=== PATIENT | female | born 1950 | race Caucasian/White ===

== ENCOUNTER 2016-10-13 10:01 | Emergency (ER) | payer OTHER ==
[~2016-10-13] VITALS: Ht 152.4 cm; Wt 46.3 kg
[~2016-10-13 10:01] MED LIST: ADVAIR DISKUS 21 DSK INH; ADVAIR DISKUS1 UNIT INH; ALBUTEROL SULFAT3 M1 NEB; ALBUTEROL SULFAT3 M1 NG; AMITRIPTYLINE H10 M2 PO; BENZONATATE100 MG PO; CALCIUM 600600 M1 PO; CELEXA40 M1 PO; CINNAMON500 MG PO; CYCLOBENZAPRINE10 M1 PO; DILAUDID2 MG PO; DUONEB 3 MG/3 ML3 ML INH/SOL; DURAGESIC12 MCG/HR TOP; ELAVIL25 MG PO; FLOVENT HF0.11 MG/Ac INH; GABAPENTIN400 MG PO; LIDODERM 5% PAT1 PAT TOP; LOVAZA1 GM PO; MASON NATURAL325 MG PO; MELOXICAM15 M1 PO; MIRALAX17 GM PO; NUEDEXTA 20 MG-1 CAP PO; PEDI-DRI 20Z60 GM PO; PRAVACHOL20 M2 PO; PRAVACHOL20 MG PO; PREDNISONE10 MG PO; PRILOSEC40 MG PO; RENAL CAPS1 SGL PO; SPIRIVA 18 MCG18 MCG INH; TAMIFLU 75MG75 MG PO; TRAZODONE HCL50 M1 PO; TUDORZA PR400 MCG/Ac INH; VALIUM2 MG PO; VITAB121000 PO; VITAMIN B11000 MCG/M IM; VITAMIN D32000 I1 PO; VOLTAREN GEL1% TOP; WELLBUTRIN75 MG PO
[2016-10-13] MEDS ORDERED: NUEDEXTA 20-101 EACH PO (10:40)
[2016-10-13] MEDS ORDERED: ALENDRONATE SOD70 M2 PO (10:42)
[2016-10-13] MEDS ORDERED: DIAZEPAM2 M1 PO (10:43)
[2016-10-13] MEDS ORDERED: OMEGA-3 ACID ETH1 GM PO (10:44)
[2016-10-13] MEDS ORDERED: VENTOLIN HFA18 GM INH (10:46)
[2016-10-13] MEDS ORDERED: ADVAIR 250-501 EACH INH (10:46)
[2016-10-13] MEDS ORDERED: INCRUSE ELLI62.5 MCG INH (10:52)
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
[2016-10-13 11:24] LABS: ABSOLUTE BASOPHIL COUNT 0 /CUMM (0.0-0.2); ABSOLUTE EOSINOPHIL COUNT 0.6 /CUMM (0.0-0.7); ABSOLUTE GRANULOCYTE CT 5.9 /CUMM (1.4-6.5); ABSOLUTE LYMPH COUNT 1.8 /CUMM (1.2-3.4); ABSOLUTE MONOCYTE COUNT 0.4 /CUMM (0.10-0.60); BASOPHIL % 0.3 % (0.0-2.0); EOSINOPHIL % 6.7 % (0-5); HEMATOCRIT 34.7 % (37-47); MEAN CORPUSCULAR HGB 29.8 PG (27.0-31.0); MEAN CORPUSCULAR HGB CONC 33.2 G/DL (33.0-37.0); MEAN CORPUSCULAR VOLUME 89.9 FL (81.0-99.0); MEAN PLATELET VOLUME 6.6 FL (7.4-10.4); PLATELET COUNT 399 /CUMM (130-400); RED BLOOD CELL CT 3.86 /CUMM (4.20-5.40); WHITE BLOOD CELL COUNT 8.6 /CUMM (4.8-10.8)
--- NOTE | 2016-10-13 11:55 | RADIOLOGY REPORT ---
EXAMINATION: XR CHEST CLINICAL INFORMATION: COPD. Cough COMPARISON: CT of October 25, 2015 and portable chest of September 14, 2015 TECHNIQUE: 2 views of the chest were obtained. FINDINGS: There is a small region of parenchymal density seen about the mid peripheral right lung which may be related to pneumonitis versus developing mass. No pneumothorax or pleural effusion. Heart normal size. No evidence of pulmonary edema. Hilar contours unremarkable. IMPRESSION: Small peripheral right lung density which may be related to pneumonia or mass. Follow-up chest x-ray in 4-6 weeks following treatment is recommended to ensure resolution.
[2016-10-13] MEDS ORDERED: MOXIFLOXACIN H400 M2 PO (13:44)
[2016-10-13] MEDS ORDERED: PREDNISONE20 M1 PO (13:44)
[2016-10-13 13:54] VITALS: BP 103/61
[2016-10-13] MEDS ORDERED: BACTRIM DS TAB1 EACH PO (14:12)
== END 2016-10-13 14:34 ==
LOC: ERH 10:01
PROVIDERS: Emergency Medicine
DX: J44.1 Chronic obstructive pulmonary disease with (acute) exacerbation (principal); Z87.891 Personal history of nicotine dependence
CPT/HCPCS: 1263; 93005; 93010; 96361; 96374; J2930

== ENCOUNTER 2016-10-18 12:14 | Inpatient (IN) | payer OTHER ==
[~2016-10-18] VITALS: Ht 152.4 cm; Wt 46.3 kg
[~2016-10-18 12:14] MED LIST changes: +ADVAIR 250-501 EACH INH; +ALENDRONATE SOD70 M2 PO; +BACTRIM DS TAB1 EACH PO; +DIAZEPAM2 M1 PO; +INCRUSE ELLI62.5 MCG INH; +MOXIFLOXACIN H400 M2 PO; +NUEDEXTA 20-101 EACH PO; +OMEGA-3 ACID ETH1 GM PO; +PREDNISONE20 M1 PO; +VENTOLIN HFA18 GM INH
--- NOTE | 2016-10-18 12:16 | ED DYSPNEA/ASTHMA COMPLAINT ---
History of Present Illness General Chief Complaint: Dyspnea (COPD, CHF, Other) Stated Complaint: BIBA WITH BREATHING PROBLEM Source: patient, old records, EMS Exam Limitations: no limitations Vital Signs & Intake/Output Vital Signs & Intake/Output Vital Signs Date Time Temp Pulse Resp B/P B/P Pulse O2 O2 Flow FiO2 Mean Ox Delivery Rate 10/18 1411 97.7 87 28 128/86 94 Nasal 2.0L Cannula 10/18 1253 92 Nasal 2.0L Cannula 10/18 1223 98.2 80 32 132/83 96 Aerosol 8L Mask Allergies Coded Allergies: naproxen (Severe, THROAT CLOSES 09/14/15) ciprofloxacin (From CIPRO HC) (UNKNOWN 09/14/15) hydrocortisone (From CIPRO HC) (UNKNOWN 09/14/15) Reconcile Medications Albuterol Sulfate (Ventolin Hfa) 90 MCG HFA.AER.AD 2 PUF INH Q4-6 PRN PRN BREATHING (Reported) Albuterol Sulfate 2.5 MG/3 ML (0.083 %) VIAL.NEB 1 Vial INH/KELLY Q4P PRN SHORTNESS OF BREATH (Reported) Alendronate Sodium 70 MG TABLET 1 TAB PO QW BONES (Reported) in the morning, at least 30 minutes before the first food, beverage, or medication of the day Amitriptyline HCl 10 MG TABLET 1 TAB PO QPM MENTAL HEALTH (Reported) Bupropion HCl 75 MG TABLET 1 TAB PO BID MENTAL HEALTH (Reported) Cefuroxime Axetil (Cefuroxime) 500 MG TABLET 1 TAB PO BID ANTIBIOTIC, INFECTION (Reported) Citalopram Hydrobromide (Celexa) 40 MG TABLET 1 TAB PO DAILY MENTAL HEALTH ( Reported) Cyclobenzaprine HCl 10 MG TABLET 1 TAB PO TID PRN MUSCLE (Reported) Dextromethorphan HBr/Quinidine (Nuedexta 20-10 MG Capsule) 20 MG-10 MG CAPSULE 1 CAP PO Q12 BREATHING (Reported) Diazepam 2 MG TABLET 1 TAB PO BIDP PRN RELAX (Reported) Fluticasone/Salmeterol (Advair 250-50 Diskus) 250 MCG-50 MCG/DOSE BLST.W.DEV 1 PUF INH BID BREATHING (Reported) Gabapentin 600 MG TABLET 1 TAB PO 4 TIMES/DAY UNKNOWN (Reported) Lisinopril 10 MG TABLET 1 TAB PO DAILY HEART (Reported) Meloxicam 15 MG TABLET 1 TAB PO DAILY PAIN (Reported) [place]-3 Acid Ethyl Esters 1 GRAM CAPSULE 2 CAP PO BID SUPPLEMENT (Reported) Pravastatin Sodium (Pravachol) 20 MG TABLET 1 TAB PO QPM CHOLESTEROL ( Reported) Prednisone 10 MG TABLET 3 TAB PO DAILY STEROID (Reported) Sulfamethoxazole/Trimethoprim (Sulfamethoxazole-Tmp Ds Tablet) 800 MG-160 MG TABLET 1 TAB PO BID ANTIBIOTIC, INFECTION (Reported) Trazodone HCl 50 MG TABLET 1 TAB PO QPM SLEEP (Reported) Umeclidinium [place] (Incruse Ellipta) 62.5 MCG/ACTUATION BLST.W.DEV 1 INH INH D BREATHING (Reported) Triage Nurses Notes Reviewed? yes Onset: Gradual Duration: getting worse Timing: recent history Severity: severe Prior Episodes/Possible Cause: chronic episodes Modifying Factors: Improves With: rest. Worsens With: movement. HPI: Patient is a 66-year-old female with a past medical history of hyperlipidemia, asthma, COPD, spinal stenosis, anxiety depression vitamin D deficiency anemia and osteoarthritis who is a 40 year pack smoking history who quit approximately 3 weeks ago who was evaluated at [facility] emergency room 5 days ago for concerns of COPD exacerbation patient was sent home with steroids and Bactrim in which patient was evaluated today by primary care Dr. Barton in office obtained chest x-ray and patient presented with no improvement of persistent cough pleuritic chest pain wheezing and shortness of breath and patient was brought in by ambulance and received 125 mg of Solu-Medrol and nebulizer treatment currently receiving. Patient currently is not on home O2. Denies any chills but does have intermittent fevers. Denies any chest pain and arm pain and jaw pain leg swelling hemoptysis or palpitations Past History Travel History Traveled to [place] past 21 day No Medical History Any Pertinent Medical History? see below for history Neurological: NONE EENT: NONE Cardiovascular: hyperlipidemia Respiratory: asthma, COPD Gastrointestinal: NONE Hepatic: NONE Renal: NONE Musculoskeletal: spinal stenosis Psychiatric: anxiety, depression Endocrine: osteoporosis, vitamin D deficiency Blood Disorders: anemia Cancer(s): NONE [employer]/Reproductive: NONE History of MRSA: Yes History of VRE: No History of CDIFF: No Tetanus Vaccine: 05/14/13 Surgical History Surgical History: LAMINECTOMY Psychosocial History Who do you live with Other (see notes) Services at Home None What is your primary language Hungarian Family History Family History, If Any: MOTHER (DM). Relation not specified for: Diabetes mellitus (DM) Hx Contributory? No Review of Systems Review of Systems Constitutional: Reports: see HPI. EENTM: Reports: no symptoms. Respiratory: Reports: see HPI, cough, short of breath, wheezing. Cardiovascular: Reports: no symptoms. GI: Reports: no symptoms. Genitourinary: Reports: no symptoms. Musculoskeletal: Reports: no symptoms. Skin: Reports: no symptoms. Neurological/Psychological: Reports: no symptoms. Hematologic/Endocrine: Reports: no symptoms. Immunologic/Allergic: Reports: no symptoms. All Other Systems: Reviewed and Negative Physical Exam Physical Exam General Appearance: cachetic, PERSISTENT COUGHING Respiratory: chest non-tender, wheezing Comments: HEENT: Normal EENT exam,. Neck: Supple, no lymphadenopathy, normal range of motion without pain or tenderness Back: Nontender, no CVA tenderness. Cardiovascular: Regular rate and rhythms no murmurs rubs or gallops, normal JVP Abdomen: Soft, nontender nondistended, no appreciable organomegaly. Normal bowel sounds. No ascites Extremity: No edema, no calf tenderness to palpation, normal and equal pulses. Neuro: Alert oriented x3, motor sensory normal, Skin: No appreciable rash on exposed skin, skin is warm and dry. Psych: Mood and affect is normal, memory and judgment is normal. Core Measures ACS in differential dx? No Severe Sepsis Present: No Septic Shock Present: No Progress Differential Diagnosis: asthma, AMI, bronchitis, costochondritis, CHF, COPD, musculoskeletal pain, pericarditis, pulmonary embolism, pneumonia, pneumothorax, rib fracture, unstable angina Plan of Care: Orders Procedure Date/time Status Regular Diet 10/19 B Active Misc Message 10/18 1642 Active ED Holding Orders 10/18 1642 Active Vital Signs 10/18 1642 Active Code Status 10/18 1642 Active Admit to inpatient 10/18 1543 Active Patient Data 10/[address] CHEST WO IV CONTRAST 10/18 1533 Active EKG 10/18 1225 Active RAPID VIRAL INFLUENZA A 10/18 1223 Complete LOWER RESPIRATORY CULTURE 10/18 1223 Active TROPONIN LEVEL 10/18 1223 Complete COMPREHENSIVE METABOLIC PANEL 10/18 1223 Complete CBC WITHOUT DIFFERENTIAL 10/18 1223 Complete Laboratory Tests 10/18/16 1300: Anion Gap 14, Estimated GFR 35 L, BUN/Creatinine Ratio 25.3 H, Glucose 132 H, Calcium 10.5 H, Total Bilirubin 0.3, AST 30, ALT 37, Alkaline Phosphatase 66, Troponin I < 0.01, Total Protein 7.4, Albumin 4.5, Globulin 2.9, Albumin/ Globulin Ratio 1.6, CBC w Diff NO MAN DIFF REQ, RBC 4.16 L, MCV 89.9, MCH 29.9, RDW 15.1 H, MPV 7.4, Gran % 84.8 H, Lymphocytes % 13.7 L, Monocytes % 1.1 L, Eosinophils % 0.1, Basophils % 0.3, Absolute Granulocytes 12.2 H, Absolute Lymphocytes 2.0, Absolute Monocytes 0.2, Absolute Eosinophils 0, Absolute Basophils 0, PUBS MCHC 33.2 Microbiology 10/18 1343 NASOPHARYN: Influenza Virus A & B Rapid Smear - COMP 10/18 1223 LOWER RESP: Respiratory Culture - ORD 10/18 122 LOWER RESP: Gram Stain - ORD On initial examination patient noted to have bilateral posterior significant wheezing. Patient had just finished her on arrival nebulizer with and she was given a continuous neb Patient still coughing persistently Patient was given 2 L of nasal cannula supplementation of oxygen 10/18/2016 1:52:57 PM reevaluation the patient still coughing and still audible wheezing oxygen saturation 92% with 2 L. Patient will be admitted for concerns of COPD which she has failed outpatient treatment of by mouth steroids and antibiotics. Discussed patient with Dr. BARTON who advised patient to obtain a CT scan of chest, he advised patient to receive an IV CT scan and not an angiogram however due to patient's elevated creatinine that one was not advisable with IV contrast in which a noncontrast was performed. (JEAN CLAUDE WATSON) Diagnostic Imaging: Viewed by Me: Radiology Read. Radiology Impression: SEE COMMENTS Initial ED EK BPM NORMAL SINUS RHYTHM, LAD Prior EKG: unchanged Comments: PATIENT: LUI WILLIAM PRESENT AGE: 66 PATIENT ACCOUNT NO: [id number] : 51 LOCATION: XRY ORDERING PHYSICIAN: CHAPIS BARTON MD SERVICE DATE: 10/18/16 EXAM TYPE: RAD - XRY-CHEST XRAY, PA AND LATERAL EXAMINATION: XR CHEST CLINICAL INFORMATION: Cough. COMPARISON: 10/13/2016. TECHNIQUE: 2 views of the chest were obtained. FINDINGS: The cardiomediastinal silhouette is unremarkable. The lungs and pleural spaces appear clear without evidence of congestion, consolidation, or significant appearing effusion or atelectasis. Nodular opacity at the left lung base is consistent with a nipple shadow which is also identified on the lateral view and was not visualized on the recent chest x-ray. There is no evidence of pneumothorax or pulmonary edema. Included osseous structures appear largely unremarkable. IMPRESSION: No acute intrathoracic process. Departure Departure Disposition: STILL A PATIENT Condition: Stable Clinical Impression Primary Impression: COPD exacerbation Referrals: CHAPIS BARTON MD (PCP/Family) Departure Forms: Customer Survey General Discharge Information Admission Note Spoke With: CHAPIS BARTON MD Documentation of Exam: Documentation of any treatments & extenuating circumstances including Concerns Regarding Discharge (functional status, medication knowledge or non-compliance, living conditions, etc.) that warrant an admission rather than observation: [ Discussed patient with Dr. Barton who agrees with general medicine admission for concerns of COPD and acute kidney injury. Patient requires IV steroids IV antibiotics, pulmonary consultation, IV fluids, repeat labs. Patient has failed outpatient treatment and discharge would be medically harmful] Critical Care Note Critical Care Note Critical Care Time: non-applicable
--- NOTE | 2016-10-18 12:38 | NUR ---
PT BETHANY FROM PCP OFFICE. PT RECEIVED OP XRAY THIS AM. WAS CALLED TO PCP OFFICE TO REVEIW RESULTS. UPON ARRIVAL TO OFFICE, DECISION MADE TO SEND PT TO HOSPITAL BY AMBULANCE. PT COUGHING NEARLY CONTINUOUSLY BUT OTHERWISE IN NAD. REC'D 1 DUONEB, 1 ALBUTEROL, AND 125 SOLUMEDROL FROM EMS. 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
[2016-10-18 13:20] LABS: ABSOLUTE BASOPHIL COUNT 0 /CUMM (0.0-0.2); ABSOLUTE EOSINOPHIL COUNT 0 /CUMM (0.0-0.7); MEAN PLATELET VOLUME 7.4 FL (7.4-10.4)
[2016-10-18 13:23] LABS: ABSOLUTE GRANULOCYTE CT 12.2 /CUMM (1.4-6.5); ABSOLUTE MONOCYTE COUNT 0.2 /CUMM (0.10-0.60); BASOPHIL % 0.3 % (0.0-2.0); EOSINOPHIL % 0.1 % (0-5); HEMATOCRIT 37.4 % (37-47); MEAN CORPUSCULAR HGB 29.9 PG (27.0-31.0); MEAN CORPUSCULAR HGB CONC 33.2 G/DL (33.0-37.0); MEAN CORPUSCULAR VOLUME 89.9 FL (81.0-99.0); PLATELET COUNT 486 /CUMM (130-400); RBC DISTRIBUTION WIDTH 15.1 % (11.5-14.5); RED BLOOD CELL CT 4.16 /CUMM (4.20-5.40)
[2016-10-18 13:24] LABS: WHITE BLOOD CELL COUNT 14.4 /CUMM (4.8-10.8)
[2016-10-18 13:37] LABS: GRANULOCYTE % 84.8 % (42.2-75.2)
[2016-10-18] MEDS ORDERED: BUPROPION HCL75 M1 PO (14:42)
[2016-10-18] MEDS ORDERED: LISINOPRIL10 M1 PO (14:45)
[2016-10-18] MEDS ORDERED: PREDNISONE10 M2 PO (14:45)
[2016-10-18] MEDS ORDERED: GABAPENTIN600 M1 PO (14:46)
[2016-10-18] MEDS ORDERED: CEFUROXIME500 MG PO (14:47)
[2016-10-18] MEDS ORDERED: SULFAMETHOXAZO1 EAC1 PO (14:47)
[2016-10-18] MEDS ORDERED: ALBUTEROL2.5 MG/3 M INH/SOL (14:48)
--- NOTE | 2016-10-18 16:02 | NUR ---
HOUSE STAFF IN TO SEE PT. FAMILY AT BEDSIDE
--- NOTE | 2016-10-18 16:22 | History & Physical ---
SYDNIE LINTON 10/18/16 1622: General Information and HPI MD Statement: I have seen and personally examined LUI WILLIAM and documented this H&P. The patient is a 66 year old F who presented with a patient stated chief complaint of cough Source of Information: patient, family, old records Exam Limitations: no limitations History of Present Illness: 63-year-old woman with more than 85-[id number]-gbob history of smoking, recently quit three weeks ago, pmh of COPD (not on home O2) history MRSA pneumonia, severe cord compression s/p in 09/14/2013, psuedobulbar affect on nuedexta, osteoporosis, anxiety, fibromyalgia brought by ambulance for desaturation and 7 day duration of persistent non productive cough . She came to [place] ED on 10/13/16 for simillar complaints and was discharged from ED on Bactrim DS and prednisone. Her symptoms did not resolve and she went to see Dr. Barton on Friday as well. She was sent by ambulance from Dr. Barton's office today for persistant cough and per patient she desaturation to 89%. In the field she was given duoneb/ albuterol and 125mcg of solumedrol. CXR was also ordred for her. Endorses shortness of breath on excertion, pleuritic chest pain,chills, dizziness, abominal pain and constipation. Uses two pillows at baseline. Denies fever, sick contacts, headaches, lower extremity swelling. Of note she was recently started on lisinopril for HTN one month ago Allergies/Medications Allergies: Coded Allergies: naproxen (Severe, THROAT CLOSES 09/14/15) ciprofloxacin (From [facility]) (UNKNOWN 09/14/15) hydrocortisone (From [facility]) (UNKNOWN 09/14/15) Home Med list Albuterol Sulfate (Ventolin Hfa) 90 MCG HFA.AER.AD 2 PUF INH Q4-6 PRN PRN BREATHING (Reported) Albuterol Sulfate 2.5 MG/3 ML (0.083 %) VIAL.NEB 1 Vial INH/KELLY Q4P PRN SHORTNESS OF BREATH (Reported) Alendronate Sodium 70 MG TABLET 1 TAB PO QW BONES (Reported) in the morning, at least 30 minutes before the first food, beverage, or medication of the day Amitriptyline HCl 10 MG TABLET 1 TAB PO QPM MENTAL HEALTH (Reported) Bupropion HCl 75 MG TABLET 1 TAB PO BID MENTAL HEALTH (Reported) Cefuroxime Axetil (Cefuroxime) 500 MG TABLET 1 TAB PO BID ANTIBIOTIC, INFECTION (Reported) Citalopram Hydrobromide (Celexa) 40 MG TABLET 1 TAB PO DAILY MENTAL HEALTH ( Reported) Cyclobenzaprine HCl 10 MG TABLET 1 TAB PO TID PRN MUSCLE (Reported) Dextromethorphan HBr/Quinidine (Nuedexta 20-10 MG Capsule) 20 MG-10 MG CAPSULE 1 CAP PO Q12 BREATHING (Reported) Diazepam 2 MG TABLET 1 TAB PO BIDP PRN RELAX (Reported) Fluticasone/Salmeterol (Advair 250-50 Diskus) 250 MCG-50 MCG/DOSE BLST.W.DEV 1 PUF INH BID BREATHING (Reported) Gabapentin 600 MG TABLET 1 TAB PO 4 TIMES/DAY UNKNOWN (Reported) Lisinopril 10 MG TABLET 1 TAB PO DAILY HEART (Reported) [place]-3 Acid Ethyl Esters 1 GRAM CAPSULE 2 CAP PO BID SUPPLEMENT (Reported) Pravastatin Sodium (Pravachol) 20 MG TABLET 1 TAB PO QPM CHOLESTEROL ( Reported) Prednisone 10 MG TABLET 3 TAB PO DAILY STEROID (Reported) Sulfamethoxazole/Trimethoprim (Sulfamethoxazole-Tmp Ds Tablet) 800 MG-160 MG TABLET 1 TAB PO BID ANTIBIOTIC, INFECTION (Reported) Trazodone HCl 50 MG TABLET 1 TAB PO QPM SLEEP (Reported) Umeclidinium [place] (Incruse Ellipta) 62.5 MCG/ACTUATION BLST.W.DEV 1 INH INH D BREATHING (Reported) Compliance With Home Meds: GOOD Past History Travel History Traveled to [place] past 21 day No Medical History Neurological: NONE EENT: NONE Cardiovascular: hyperlipidemia Respiratory: asthma, COPD Gastrointestinal: NONE Hepatic: NONE Renal: NONE Musculoskeletal: spinal stenosis Psychiatric: anxiety, depression Endocrine: osteoporosis, vitamin D deficiency Blood Disorders: anemia Cancer(s): NONE 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 Relation not specified for: Diabetes mellitus (DM) FHx: lung cancer FHx: malignant neoplasm of bone Psychosocial History Who Do You Live With? self Services at Home: None Primary Language: Central [place] Smoking Status: Former Smoker ETOH Use: denies use Functional Ability ADLs Independent: dressing, eating, toileting, bathing. Ambulation: cane IADLs Independent: shopping, housework, finances, food prep, telephone, transportation , medication admin. Review of Systems Review of Systems Constitutional: Reports: chills. Denies: diaphoresis, fever, malaise, weakness, unexplained weight loss. Cardiovascular: Denies: chest pain, edema, orthopena, palpitations, peripheral edema, syncope. Respiratory: Reports: cough, short of breath. Denies: hemoptysis, orthopnea, sputum production, stridor, wheezing. GI: Reports: constipation. Denies: abdominal pain, bloating, diarrhea, distention, bowel incontinence, melena, nausea, bloody stool, changes in stool, vomiting, steatorrhea. Genitourinary: Denies: discharge, dysuria, frequency, hematuria, hesitation, nocturia, pain, urgency. Exam & Diagnostic Data Last 24 Hrs of Vital Signs/I&O Vital Signs Date Time Temp Pulse Resp B/P B/P Pulse O2 O2 Flow FiO2 Mean Ox Delivery Rate 10/18 1411 97.7 87 28 128/86 94 Nasal 2.0L Cannula 10/18 1253 92 Nasal 2.0L Cannula 10/18 1223 98.2 80 32 132/83 96 Aerosol 8L Mask Intake & Output 10/18 1600 10/18 0800 10/18 0000 Intake Total 1430 Output Total Balance 1430 Intake, IV 1250 Intake, Oral 180 Patient 102 lb Weight Weight Reported by Patient Measurement Method Physical Exam General Appearance Alert, Oriented X3, Mild Distress, cachetic Skin No Significant Lesion HEENT Atraumatic, PERRLA, EOMI, Mucous Membr. moist/pink Cardiovascular Regular Rate, Normal S1, Normal S2 Lungs b/l coarse rhonchi in all lung bases Abdomen Normal Bowel Sounds, Soft, No Tenderness Extremities No Edema Last 24 Hrs of Labs/Emre: Laboratory Tests 10/18/16 1300: Anion Gap 14, Estimated GFR 35 L, BUN/Creatinine Ratio 25.3 H, Glucose 132 H, Calcium 10.5 H, Total Bilirubin 0.3, AST 30, ALT 37, Alkaline Phosphatase 66, Troponin I < 0.01, Total Protein 7.4, Albumin 4.5, Globulin 2.9, Albumin/ Globulin Ratio 1.6, PTH Intact Pending, CBC w Diff NO MAN DIFF REQ, RBC 4.16 L, MCV 89.9, MCH 29.9, RDW 15.1 H, MPV 7.4, Gran % 84.8 H, Lymphocytes % 13.7 L, Monocytes % 1.1 L, Eosinophils % 0.1, Basophils % 0.3, Absolute Granulocytes 12.2 H, Absolute Lymphocytes 2.0, Absolute Monocytes 0.2, Absolute Eosinophils 0, Absolute Basophils 0, PUBS MCHC 33.2 Microbiology 10/18 1343 NASOPHARYN: Influenza Virus A & B Rapid Smear - COMP 10/18 1223 LOWER RESP: Respiratory Culture - ORD 10/18 122 LOWER RESP: Gram Stain - ORD Diagnostic Data EKG Results NSR, nonspecific ST wave changes in lateral leads simillar to previous EKG CXR Results SERVICE DATE: 10/18/16 FINDINGS: The cardiomediastinal silhouette is unremarkable. The lungs and pleural spaces appear clear without evidence of congestion, consolidation, or significant appearing effusion or atelectasis. Nodular opacity at the left lung base is consistent with a nipple shadow which is also identified on the lateral view and was not visualized on the recent chest x-ray. There is no evidence of pneumothorax or pulmonary edema. Included osseous structures appear largely unremarkable. IMPRESSION: No acute intrathoracic process. Other Results CT CHEST WO IV CONTRAST IMPRESSION: 1. Emphysematous changes of lung. 2. Scattered reticular nodular opacities of both lungs that are new since the CAT scan of 10/25/2015 most likely due to nonspecific infectious or inflammatory etiology. Assessment/Plan Assessment: 63-year-old woman with more than 41-qvss-hygm history of smoking recently quit three weeks ago, pmh of COPD (not on home O2) history MRSA pneumonia, severe cord compression s/p in 09/14/2013, psuedobulbar affect on nuedexta, osteoporosis, anxiety, fibromyalgia brought by ambulance for desaturation and 7 day duration of persistent non productive cough. On admission afebrile, saturating 94% of 2LNC, labs pertinent for leucocytosis of 14.4 with left shift and no bandemia. hyperkalemia (5.8), creatinine/BUN 1.5/38 (baseline 1.2). CXR shows no acute pathology, CT chest significant for emphysematous changes of lung , scattered reticular nodular opacities of both lungs that are new since the CAT scan of 10/25/2015 most likely due to nonspecific infectious or inflammatory etiology. problem list: persistent cough hyperkalemia dyspnea secoundary to COPD exacerbation EMMA osteoporosis pseudobulbar affect history of MRSA plan: will admit to general medicine floor, vitals per protocol, place isolation ATC TRC/nebs, continue supplemental oxygen, symbicort will start azithromycin, continue with IV 40mg q12 solumedrol, tesslon pearles f/up quick strep, sputum cultures Her lisinopril as well as nuedexta(5%) cough is a side effect. her pleuritic chest pain and abdominal can be attributed to her perisistent cought as well will hold lisinopril secondary to emma and possible etiology of her cough, monitor BP and will assess the need to start antihypertensive EMMA secondary to prerenal azotemia vs drug (lisinopril), will will give kayexalate and reassess potassium level (No EKG changes noted) will continue home meds of elavil, gabapentin,statin,trazadone,wellbutrin, nuedexta, regular diet dvt prophylaxis full code As Ranked By This Provider Problem List: 1. COPD exacerbation 2. Hyperkalemia 3. Cough Core Measures/Miscellaneous Acute Coronary Syndrome ACS Diagnosis: No Cerebrovascular Accident CVA/TIA Diagnosis: No Congestive Heart Failure CHF Diagnosis: No Venous Thromboembolism VTE Risk Factors: Age > 40 [facility] prophylaxis d/t: No contraindications No VTE Pharm Prophylaxis d/t: No contraindications VTE Diagnosis: No VTE Type: NONE VTE Confirmed by (Test): NONE Severe Sepsis Severe Sepsis Present: No Septic Shock Septic Shock Present: No Miscellaneous Documentation Attending Case Discussed With: CHAPIS BARTON MD Primary Care Physician: CHAPIS BARTON MD Patient sees these Specialists none Level of Patient Care: General Medicine FRANKI PAYTON 10/18/16 5055: Resident Review Statement Resident Statement: examined this patient, discussed with internet database specialist Other Findings: Patient is a 66-year-old female with past medical history significant for COPD, spinal stenosis, MRSA pneumonia, history of chronic respiratory failure, depression, anxiety, fibromyalgia, pseudo-bulbar effect, hypertension and osteopenia/osteoporosis came with chief complaint of worsening shortness of breath and persistent cough for more than a week. Patient admits that she was coughing a lot for the past week for that she was seen in emergency room on October 13 and was sent home on tapering course of prednisone and Bactrim and was instructed to follow-up with her PCP. She was seen by Dr. Barton in his office day before yesterday and chest x-ray was ordered. Her cough was persistently there without any relief and today patient was called in at Dr. Barton's office and was sent into the hospital by ambulance. On her way to the hospital she was given IV Solu-Medrol and nebulization treatment. She denied any high-grade fever, chills and admits that she was hydrating herself adequately. She denied nausea, vomiting, any urinary or bowel complaints. She has some off-and-on headaches. Admission vital signs were significant for temperature 98.2, pulse 80, respiratory rate 32, blood pressure 132/83, she was saturating 96% on 8 L of nasal cannula but later on it came down to 2 L. Initial labs were significant for WBC count 14.4, hemoglobin 12.4, hematocrit 12.4, platelet count 486, sodium 136, potassium 5.8, [place] 96, creatinine 1.5, calcium 10.5, negative troponins, Chest x-ray and chest CT were negative for any acute cardiopulmonary pathology. EKG didn't show up any acute changes Physical examination Patient is alert and oriented but in mild respiratory distress HEENT normal with atraumatic head Neck supple Chest auscultation is significant for very reduced air entry Heart normal S1, S2 with no added sounds Abdomen soft nontender without organomegaly Extremities shows no edema or cyanosis Alert and oriented with no neurological deficit Skin showed no rash Assessment and plan Patient is 66-year-old female with extensive smoking history quit 3 weeks ago with past medical history significant for COPD, MRSA pneumonia in the past, osteoporosis/osteopenia, chronic respiratory failure, hypertension, pseudo -bulbar affect, anxiety and depression and spinal stenosis status post laminectomy came with chief complaint of persistent cough and shortness of breath for more than a week most likely due to COPD axis are patient versus medication side effect. We will admit patient on general medical floor and will take care for the following problems Problem #1 persistent cough could be due to COPD exacerbation versus lisinopril side effect Problem #2 worsening shortness of breath due to underlying chronic respiratory failure and COPD exacerbation Problem #3 hyperkalemia could be due to acute kidney injury/lisinopril Problem #4 elevated creatinine most likely a EMMA due to dehydration Problem #5 history of hypertension Problem #6 spinal stenosis status post laminectomy Problem #7 history of anxiety and depression Plan 1. We'll keep patient on general medical floor and will do TRC and nebulization along with IV Solu-Medrol and a azithromycin for COPD exacerbation. Dr. Gu spa coordinator will see patient tomorrow 2. We will hydrate patient with normal saline as her emma and hypercalcemia most likely due to dehydration. We will check PTH. 3. We will send sputum for culture and sensitivity 4. We will give patient And will recheck Bep at 10 PM 5. We will hold her lisinopril and will monitor her blood pressure closely and if needed we will give her some and other class of antihypertensives 6. We will restart all other home medications. Regular diet Pharmacological DVT prophylaxis Patient is full code ANDREW TAYLOR,[facility] 10/18/16 1813: Attending MD Review Statement Attending Statement Attending MD Statement: examined this patient, discuss w/resident/PA/SANDING MACHINE OPERATOR, agreed w/resident/PA/SANDING MACHINE OPERATOR, discussed with family, reviewed EMR data (avail) Attending Assessment/Plan: Patient evaluated in my office today. She had extensive cough mostly nonproductive and was saturating 90% on room air. General Appearance: Alert, No Acute Distress Skin: Grossly normal HEENT: PEERLA Neck: Supple, No JVD Cardiovascular: Regular Rate, Normal S1, Normal S2, No Murmurs Lungs: Decreased air entry all lung george Abdomen: Soft non tender abdomen, normal bowel sounds Neurological: Normal Speech, Strength at 5/5 X4 Ext, Cranial Nerves 3-12 NL, Reflexes 2+ Extremities: No Clubbing, No Cyanosis, No Edema Vascular: Normal Pulses Assessment 66-year-old with history of COPD, MRSA pneumonia, severe cord compressions, osteoporosis, pseudobulbar affect, anxiety and fibromyalgia was initially evaluated in the ER that point x-ray was negative for pneumonia and she was discharged on Bactrim and prednisone. Since her discharge she was evaluated in my office for extensive cough and shortness of breath. She had a chest x-ray today outside the hospital that was negative. The patient was then sent to the ER for further evaluation of the CT scan. Her CAT scan suggests bibasilar nodules that are likely inflammatory in origin. She has acute kidney injury with hyperkalemia. She will be admitted for COPD exacerbation. Plan IV Solu-Medrol IV fluids Repeat kidney function in a.m. Hold lisinopril Azithromycin Induce and send sputum culture Continue other home medication DVT prophylaxis
--- NOTE | 2016-10-18 16:54 | NUR ---
PT TO AND RETURN FROM CT SCAN. DRY COUGH REMAINS. NO NEW OR WORSENING SX
--- NOTE | 2016-10-18 17:06 | CT SCAN REPORT ---
EXAMINATION: CT CHEST WITHOUT CONTRAST CLINICAL INFORMATION: Cough, shortness of breath COMPARISON: CT chest 10/25/2015. Chest x-ray 10/18/2016 TECHNIQUE: Multidetector volumetric CT imaging of the chest was done. Axial MIP volume rendering provided. Sagittal and coronal reformatted images were obtained. No oral or intravenous contrast DLP: 185.64 mGy-cm FINDINGS: LUNGS: There is emphysematous hyperinflation of lungs. There are scattered small reticular nodular opacities involving both lungs with all lobes involved. There is no focal dense consolidation. There is a linear opacity in the right upper lobe peripherally anteriorly, sagittal image 85. This is linear atelectasis versus scarring. The reticular nodular lung opacities are new since prior CT study and consistent with inflammatory/infectious etiology though are not specific. The central bronchial airways are open. No bronchiectasis or significant bronchial wall thickening. MEDIASTINUM: No mediastinal mass or bulky lymphadenopathy. There is vascular wall calcifications of aorta. PLEURA: There is no pleural effusion. No pleural mass or thickening. AXILLA: No bulky lymphadenopathy. UPPER ABDOMEN: Unremarkable. OSSEOUS STRUCTURES: Multilevel endplate degenerative spurring of the dorsal spine. IMPRESSION: 1. Emphysematous changes of lung. 2. Scattered reticular nodular opacities of both lungs that are new since the CAT scan of 10/25/2015 most likely due to nonspecific infectious or inflammatory etiology.
--- NOTE | 2016-10-18 17:56 | NUR ---
PT GOING TO ROOM 227-1.
--- NOTE | 2016-10-18 18:06 | Admission Certification ---
Admission Certification Certification Statement - As attending physician, I certify that at the time of - admission, based on clinical presentation, severity of - symptoms, need for further diagnostic testing and - therapeutic interventions, and risk of adverse outcomes - without in-hospital treatment, in my clinical assessment, - this patient requires an acute hospital stay for a minimum - of two nights or longer. I have also considered psychsocial - factors such as support system, advanced age, financial - issues, cognitive issues, and failed out-patient treatments, - past re-admission history, safety of patient, and lack of - compliance as applicable. Specific rationale supporting this admission is: copd exacerbation
--- NOTE | 2016-10-18 18:35 | NUR ---
PT GIVEN DINNER. 100% EATEN. SLIGHT SOB WHEN STANDING. NAD
--- NOTE | 2016-10-18 19:24 | NUR ---
REPORT GIVEN TO JONES ON 2NA. PT STABLE AND AWAITING TRANSPORT TO FLOOR
[2016-10-18 20:21] VITALS: BP 120/60
--- NOTE | 2016-10-18 20:48 | NUR ---
PT UP TO FLOOR AT 1945. PT A/O X3, PT ON 2L NC VSS. SOB W SPEECH. PT WITH NONPRODUCTIVE COUGH X 1 WEEK. PT C/O MILD PAIN D/T COUGHING. OOB W STEADY GAIT. HX OF FALLS D/T MISSING A STEP GOING DOWNSTAIRS.WILL MONITOR
[2016-10-18 22:38] VITALS: BP 110/62
[2016-10-19 07:15] VITALS: BP 140/72
--- NOTE | 2016-10-19 07:58 | PN- Housestaff ---
Subjective Follow-up For: persistent cough hyperkalemia dyspnea secoundary to COPD exacerbation LORI Subjective: Seen and examined patient. States that her breathing is a little better but continues to cough. She feels that this cough is a little different from the usual cough that she gets when she has her bronchitis exacerbations. Denies fevers, chills, chest pain, shortness of breath. Review of Systems Constitutional: Denies: chills, diaphoresis, fever, malaise, weakness, unexplained weight loss. Cardiovascular: Denies: chest pain, edema, orthopena, palpitations, peripheral edema, syncope. Respiratory: Reports: cough. Denies: hemoptysis, orthopnea, short of breath, sputum production, stridor, wheezing. Objective Last 24 Hrs of Vital Signs/I&O Vital Signs Date Time Temp Pulse Resp B/P B/P Pulse O2 O2 Flow FiO2 Mean Ox Delivery Rate 10/19 0918 97 Nasal 1.0L Cannula 10/19 0715 97.9 63 20 140/72 94 Nasal 2.5L Cannula 10/19 0000 Nasal 2.0L Cannula 10/18 2238 98.1 70 20 110/62 96 Nasal 2.0L Cannula 10/18 2021 97.1 67 16 120/60 95 Nasal 2.0L Cannula 10/18 2018 Nasal 2.0L Cannula 10/18 1930 98.1 70 24 124/58 96 Nasal 2.0L Cannula 10/18 1819 Nasal 2.0L Cannula 10/18 1755 98.7 72 18 133/66 95 10/18 1604 97.5 84 22 124/84 94 Nasal 2.0L Cannula 10/18 1411 97.7 87 28 128/86 94 Nasal 2.0L Cannula 10/18 1253 92 Nasal 2.0L Cannula 10/18 1223 98.2 80 32 132/83 96 Aerosol 8L Mask Intake & Output 10/19 1600 10/19 0800 10/19 0000 Intake Total 300 750 Output Total Balance 300 750 Intake, IV 250 Intake, Oral 300 500 Patient 102 lb Weight Weight Reported by Patient Measurement Method Physical Exam General Appearance: Alert, Oriented X3, Cooperative, No Acute Distress Cardiovascular: Regular Rate, Normal S1, Normal S2 Lungs: bilateral rhonchi Abdomen: Normal Bowel Sounds, Soft, No Tenderness Extremities: No Edema Current Medications: Current Medications Sig/Tigre Start time Last Medication Dose Route Stop Time Status Admin Acetaminophen 650 MG Q6P PRN 10/18 1700 AC PO Albuterol Sulfate 3 ML EVERY 4 HRS/AWAKE 10/18 2000 AC 10/19 INH 0917 Albuterol Sulfate 3 ML Q4P PRN 10/18 1745 AC INH Albuterol Sulfate 2 PUF Q4-6 PRN PRN 10/18 1745 AC INH Albuterol Sulfate 18 ML ONCE ONE 10/18 1230 DC 10/18 INH 10/18 1231 1253 Amitriptyline HCl 10 MG QPM 10/18 2200 AC 10/18 PO 2203 Azithromycin 500 MG ONCE ONE 10/18 1230 DC 10/18 Sodium Chloride 250 ML IV 10/18 1329 1300 Benzonatate 100 MG TID 10/18 1708 AC 10/19 PO 0909 Budesonide/ 2 PUF BID 10/18 2200 AC 10/19 Formoterol Fumarate INH 0908 Bupropion HCl 75 MG BID 10/18 2200 AC 10/19 PO 0910 Citalopram 40 MG DAILY 10/18 1735 AC 10/19 Hydrobromide PO 0909 Dextromethorphan/ 1 CAP Q12 10/18 2200 AC 10/19 Quinidine PO 0911 Gabapentin 600 MG Q6 10/18 1800 AC 10/19 PO 0909 Guaifenesin 0 .STK-MED ONE 10/18 1252 DC PO Guaifenesin 600 MG ONCE ONE 10/18 1230 DC 10/18 PO 10/18 1231 1302 Heparin Sodium 5,000 UNIT Q8 10/18 1645 AC 10/19 (Porcine) SC 0528 Methylprednisolone 40 MG Q8 10/18 2200 AC 10/19 IV 0528 Methylprednisolone 60 MG Q8 10/18 1706 DC IV Oxycodone/ 2 TAB Q6P PRN 10/18 1715 AC Acetaminophen PO Oxycodone/ 1 TAB Q6P PRN 10/18 1700 AC 10/19 Acetaminophen PO 0927 Pravastatin Sodium 20 MG QPM 10/18 2200 AC 10/18 PO 2203 Sodium Chloride 1,000 ML Q10H 10/18 1715 AC 10/19 IV 0641 Sodium Chloride 1,000 ML BOLUS ONE 10/18 1345 DC 10/18 IV 10/18 1444 1420 Sodium Polystyrene 60 ML ONCE ONE 10/18 1715 DC 10/18 Sulfonate PO 10/18 1716 2201 Trazodone HCl 50 MG QPM 10/18 2199 AC 10/18 PO 220 Last 24 Hrs of Lab/Emre Results Last 24 Hrs of Labs/Mics: Laboratory Tests 10/19/16 0648: Anion Gap 10, Estimated GFR 50 L, BUN/Creatinine Ratio 27.3 H, Calcium 8.5, CBC w Diff NO MAN DIFF REQ, RBC 3.46 L, MCV 89.7, MCH 30.0, RDW 14.8 H, MPV 7.6, Gran % 82.1 H, Lymphocytes % 14.8 L, Monocytes % 2.9, Eosinophils % 0, Basophils % 0.2, Absolute Granulocytes 11.0 H, Absolute Lymphocytes 2.0, Absolute Monocytes 0.4, Absolute Eosinophils 0, Absolute Basophils 0, PUBS MCHC 33.5 10/19/16 0025: Anion Gap 11, Estimated GFR 38 L, BUN/Creatinine Ratio 27.1 H 10/18/16 1740: Sodium Cancelled, Potassium Cancelled, Chloride Cancelled, Carbon Dioxide Cancelled, Anion Gap Cancelled, BUN Cancelled, Creatinine Cancelled, BUN/ Creatinine Ratio Cancelled 10/18/16 1300: Anion Gap 14, Estimated GFR 35 L, BUN/Creatinine Ratio 25.3 H, Glucose 132 H, Calcium 10.5 H, Total Bilirubin 0.3, AST 30, ALT 37, Alkaline Phosphatase 66, Troponin I < 0.01, Total Protein 7.4, Albumin 4.5, Globulin 2.9, Albumin/ Globulin Ratio 1.6, PTH Intact 52.9, CBC w Diff NO MAN DIFF REQ, RBC 4.16 L, MCV 89.9, MCH 29.9, RDW 15.1 H, MPV 7.4, Gran % 84.8 H, Lymphocytes % 13.7 L, Monocytes % 1.1 L, Eosinophils % 0.1, Basophils % 0.3, Absolute Granulocytes 12.2 H, Absolute Lymphocytes 2.0, Absolute Monocytes 0.2, Absolute Eosinophils 0, Absolute Basophils 0, PUBS MCHC 33.2 Microbiology 10/18 175 LOWER RESP: Respiratory Culture - COLB 10/18 175 LOWER RESP: Gram Stain - COLB 10/18 1343 NASOPHARYN: Influenza Virus A & B Rapid Smear - COMP 10/18 1223 LOWER RESP: Respiratory Culture - COLB 10/18 1223 LOWER RESP: Gram Stain - COLB Assessment/Plan Assessment: 63-year-old woman with more than 10-[id number]-[id number] history of smoking recently quit three weeks ago, pmh of COPD (not on home O2) history MRSA pneumonia, severe cord compression s/p in 09/14/2013, psuedobulbar affect on nuedexta, osteoporosis, anxiety, fibromyalgia brought by ambulance for desaturation and 7 day duration of persistent non productive cough. On admission afebrile, saturating 94% of 2LNC, labs pertinent for leucocytosis of 14.4 with left shift and no bandemia. hyperkalemia (5.8), creatinine/BUN 1.5/38 (baseline 1.2). CXR shows no acute pathology, CT chest significant for emphysematous changes of lung , scattered reticular nodular opacities of both lungs that are new since the CAT scan of 10/25/2015 most likely due to nonspecific infectious or inflammatory etiology. Hospital day 1 Her breathing has improved a little bit, remains afebrile, blood pressure is remaining stable WBC 13.3 today from from 14.4 yesterday Hemoglobin dropped from 12.4-10.4 along with a drop in hematocrit as well as platelets. Potassium 4.5 today, creatinine 1.1 trending down from 1.4 yesterday. Rapid influenza negative for A and B. problem list: persistent cough(COPD exacerbation versus drug-induced) Leukocytosis most likely secondary to steroids hyperkalemia-resolved dyspnea secoundary to COPD exacerbation LORI-improving osteoporosis pseudobulbar affect history of MRSA plan: Continue general medicine floor, vitals per protocol, place isolation ATC TRC/nebs, continue to taper supplemental oxygen, symbicort will start azithromycin day 2, continue with IV 40mg q12 solumedrol, sebastien berry will continue to hold lisinopril I do not think that she needs to be started on antihypertensive will continue monitor blood pressure LORI secondary to prerenal azotemia vs drug (lisinopril), improving with IV fluids will continue home meds of elavil, gabapentin,statin,trazadone,wellbutrin, nuedexta, regular diet dvt prophylaxis full code Problem List: 1. COPD exacerbation 2. Cough 3. Hyperkalemia Pain Ratin Pain Location: Not applicable Pain Goal: Pain 4 or less Pain Plan: Current regimen Tomorrow's Labs & Rationales: CBC/ BeP
[2016-10-19 08:13] LABS: ABSOLUTE BASOPHIL COUNT 0 /CUMM (0.0-0.2); ABSOLUTE EOSINOPHIL COUNT 0 /CUMM (0.0-0.7); ABSOLUTE MONOCYTE COUNT 0.4 /CUMM (0.10-0.60); BASOPHIL % 0.2 % (0.0-2.0); EOSINOPHIL % 0 % (0-5); GRANULOCYTE % 82.1 % (42.2-75.2); MEAN CORPUSCULAR HGB CONC 33.5 G/DL (33.0-37.0); MEAN CORPUSCULAR VOLUME 89.7 FL (81.0-99.0); MEAN PLATELET VOLUME 7.6 FL (7.4-10.4); PLATELET COUNT 364 /CUMM (130-400); RBC DISTRIBUTION WIDTH 14.8 % (11.5-14.5); RED BLOOD CELL CT 3.46 /CUMM (4.20-5.40); WHITE BLOOD CELL COUNT 13.3 /CUMM (4.8-10.8)
[2016-10-19 08:59] LABS: HEMATOCRIT 31.1 % (37-47)
--- NOTE | 2016-10-19 14:00 | Cons- Pulmonary ---
General Information and HPI Consulting Request Date of Consult: 10/19/16 Requested By: med team History of Present Illness: 63-year-old woman with more than [id number] history of smoking, recently quit three weeks ago, pmh of COPD (not on home O2) history MRSA pneumonia, severe cord compression s/p in 09/14/2013, psuedobulbar affect on nuedexta, osteoporosis, anxiety, fibromyalgia brought by ambulance for desaturation and 7 day duration of persistent non productive cough . She came to [facility] ED on 10/13/16 for simillar complaints and was discharged from ED on Bactrim DS and prednisone. Her symptoms did not resolve and she went to see Dr. Barton on Friday as well. She was sent by ambulance from Dr. Barton's office today for persistant cough and per patient she desaturation to 89%. In the field she was given duoneb/ albuterol and 125mcg of solumedrol. CXR was also ordred for her. Endorses shortness of breath on excertion, pleuritic chest pain,chills, dizziness, abominal pain and constipation. Uses two pillows at baseline. Denies fever, sick contacts, headaches, lower extremity swelling. Of note she was recently started on lisinopril for HTN one month ago Review of Systems Constitutional: Reports: chills. Denies: diaphoresis, fever, malaise, weakness, unexplained weight loss. Cardiovascular: Denies: chest pain, edema, orthopena, palpitations, peripheral edema, syncope. Respiratory: Reports: cough, short of breath. Denies: hemoptysis, orthopnea, sputum production, stridor, wheezing. GI: Reports: constipation. Denies: abdominal pain, bloating, diarrhea, distention, bowel incontinence, melena, nausea, bloody stool, changes in stool, vomiting, steatorrhea. Genitourinary: Denies: discharge, dysuria, frequency, hematuria, hesitation, nocturia, pain, urgency. Allergies/Medications Allergies: Coded Allergies: naproxen (Severe, THROAT CLOSES 09/14/15) ciprofloxacin (From C[facility]RO [facility]) (UNKNOWN 09/14/15) hydrocortisone (From CIPRO HC) (UNKNOWN 09/14/15) Home Med List: Albuterol Sulfate (Ventolin Hfa) 90 MCG HFA.AER.AD 2 PUF INH Q4-6 PRN PRN BREATHING (Reported) Albuterol Sulfate 2.5 MG/3 ML (0.083 %) VIAL.NEB 1 Vial INH/KELLY Q4P PRN SHORTNESS OF BREATH (Reported) Alendronate Sodium 70 MG TABLET 1 TAB PO QW BONES (Reported) in the morning, at least 30 minutes before the first food, beverage, or medication of the day Amitriptyline HCl 10 MG TABLET 1 TAB PO QPM MENTAL HEALTH (Reported) Bupropion HCl 75 MG TABLET 1 TAB PO BID MENTAL HEALTH (Reported) Cefuroxime Axetil (Cefuroxime) 500 MG TABLET 1 TAB PO BID ANTIBIOTIC, INFECTION (Reported) Citalopram Hydrobromide (Celexa) 40 MG TABLET 1 TAB PO DAILY MENTAL HEALTH ( Reported) Cyclobenzaprine HCl 10 MG TABLET 1 TAB PO TID PRN MUSCLE (Reported) Dextromethorphan HBr/Quinidine (Nuedexta 20-10 MG Capsule) 20 MG-10 MG CAPSULE 1 CAP PO Q12 BREATHING (Reported) Diazepam 2 MG TABLET 1 TAB PO BIDP PRN RELAX (Reported) Fluticasone/Salmeterol (Advair 250-50 Diskus) 250 MCG-50 MCG/DOSE BLST.W.DEV 1 PUF INH BID BREATHING (Reported) Gabapentin 600 MG TABLET 1 TAB PO 4 TIMES/DAY UNKNOWN (Reported) Lisinopril 10 MG TABLET 1 TAB PO DAILY HEART (Reported) [place]-3 Acid Ethyl Esters 1 GRAM CAPSULE 2 CAP PO BID SUPPLEMENT (Reported) Pravastatin Sodium (Pravachol) 20 MG TABLET 1 TAB PO QPM CHOLESTEROL ( Reported) Prednisone 10 MG TABLET 3 TAB PO DAILY STEROID (Reported) Sulfamethoxazole/Trimethoprim (Sulfamethoxazole-Tmp Ds Tablet) 800 MG-160 MG TABLET 1 TAB PO BID ANTIBIOTIC, INFECTION (Reported) Trazodone HCl 50 MG TABLET 1 TAB PO QPM SLEEP (Reported) Umeclidinium [place] (Incruse Ellipta) 62.5 MCG/ACTUATION BLST.W.DEV 1 INH INH D BREATHING (Reported) Review of Systems Review of Systems Constitutional: Reports: see HPI. 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 Relation not specified for: Diabetes mellitus (DM) FHx: lung cancer FHx: malignant neoplasm of bone Psychosocial History Where Do You Live? Home Who Do You Live With? self Services at Home: None Primary Language: Eritrean Smoking Status: Former Smoker ETOH Use: denies use Functional Ability ADLs Independent: dressing, eating, toileting, bathing. Ambulation: cane IADLs Independent: shopping, housework, finances, food prep, telephone, transportation , medication admin. Exam & Diagnostic Data Last 24 Hrs of Vital Signs/I&O Vital Signs Date Time Temp Pulse Resp B/P B/P Pulse O2 O2 Flow FiO2 Mean Ox Delivery Rate 10/19 0918 97 Nasal 1.0L Cannula 10/19 0715 97.9 63 20 140/72 94 Nasal 2.5L Cannula 10/19 0000 Nasal 2.0L Cannula 10/18 2238 98.1 70 20 110/62 96 Nasal 2.0L Cannula 10/18 2021 97.1 67 16 120/60 95 Nasal 2.0L Cannula 10/18 2018 Nasal 2.0L Cannula 10/18 1930 98.1 70 24 124/58 96 Nasal 2.0L Cannula 10/18 1819 Nasal 2.0L Cannula 10/18 1755 98.7 72 18 133/66 95 10/18 1604 97.5 84 22 124/84 94 Nasal 2.0L Cannula 10/18 1411 97.7 87 28 128/86 94 Nasal 2.0L Cannula Intake & Output 10/19 1600 10/19 0800 10/19 0000 Intake Total 300 750 Output Total Balance 300 750 Intake, IV 250 Intake, Oral 300 500 Patient 102 lb Weight Weight Reported by Patient Measurement Method Last 48 Hrs of Labs/Emre: Laboratory Tests 10/19/16 0648: Anion Gap 10, Estimated GFR 50 L, BUN/Creatinine Ratio 27.3 H, Calcium 8.5, CBC w Diff NO MAN DIFF REQ, RBC 3.46 L, MCV 89.7, MCH 30.0, RDW 14.8 H, MPV 7.6, Gran % 82.1 H, Lymphocytes % 14.8 L, Monocytes % 2.9, Eosinophils % 0, Basophils % 0.2, Absolute Granulocytes 11.0 H, Absolute Lymphocytes 2.0, Absolute Monocytes 0.4, Absolute Eosinophils 0, Absolute Basophils 0, PUBS MCHC 33.5 10/19/16 0025: Anion Gap 11, Estimated GFR 38 L, BUN/Creatinine Ratio 27.1 H 10/18/16 1740: Sodium Cancelled, Potassium Cancelled, Chloride Cancelled, Carbon Dioxide Cancelled, Anion Gap Cancelled, BUN Cancelled, Creatinine Cancelled, BUN/ Creatinine Ratio Cancelled 10/18/16 1300: Anion Gap 14, Estimated GFR 35 L, BUN/Creatinine Ratio 25.3 H, Glucose 132 H, Calcium 10.5 H, Total Bilirubin 0.3, AST 30, ALT 37, Alkaline Phosphatase 66, Troponin I < 0.01, Total Protein 7.4, Albumin 4.5, Globulin 2.9, Albumin/ Globulin Ratio 1.6, PTH Intact 52.9, CBC w Diff NO MAN DIFF REQ, RBC 4.16 L, MCV 89.9, MCH 29.9, RDW 15.1 H, MPV 7.4, Gran % 84.8 H, Lymphocytes % 13.7 L, Monocytes % 1.1 L, Eosinophils % 0.1, Basophils % 0.3, Absolute Granulocytes 12.2 H, Absolute Lymphocytes 2.0, Absolute Monocytes 0.2, Absolute Eosinophils 0, Absolute Basophils 0, PUBS MCHC 33.2 Microbiology 10/18 1343 NASOPHARYN: Influenza Virus A & B Rapid Smear - COMP Assessment/Plan Impression/Plan: CT chest IMPRESSION: 1. Emphysematous changes of lung. 2. Scattered reticular nodular opacities of both lungs that are new since the CAT scan of 10/25/2015 most likely due to nonspecific infectious or inflammatory etiology. Physical Exam General Appearance Alert, Oriented X3, Mild Distress, cachetic Skin No Significant Lesion HEENT Atraumatic, PERRLA, EOMI, Mucous Membr. moist/pink Cardiovascular Regular Rate, Normal S1, Normal S2 Lungs b/l coarse rhonchi in all lung bases Abdomen Normal Bowel Sounds, Soft, No Tenderness Extremities No Edema IMPRESSION This is a lady with end-stage COPD who unfortunately continues to smoke says she quit smoking with chronic pain syndrome now has SIg bronchiolitis with sig cough Previous c spine disease with rule out aspiration FIbromyalgia Chronic pain syndrome Recent aci use Sig gerd Rule out bacterial bronchiolitis REC Change to po prednisone 60 Start po azithro 500 qd CONt gabapentin and benzonatate Omeprazone po bid Keep hob up Sputum culture Nebs with albuterol Spiriva one puff daily first dose now Symbicort 160 po bid Dc iv steroids Will follow closely Consult Acknowledgment - Thank you for your consult request.
[2016-10-19 14:28] VITALS: BP 140/80
--- NOTE | 2016-10-19 17:24 | NUR ---
LATE ENTRY: PT NOTED WITH BOTHERSOME COOKING CHEF COUGH. NO MUCINEX OR ROBITUSSIN NOTED ON PT'S EMAR. PT SATS 94% ON RA NOW. NO ACUTE DISTRESS. PT TX FOR BRONCHITIS. DR. FANG CONTACTED TO SEE IF ANY MEDICATIONS CAN BE ORDERED TO ASSIST PT WITH IRRITATION D/T PERSISTENT DRY COUGH. SNO. WILL CONT TO MONITOR.
[2016-10-19 22:07] VITALS: BP 160/88
--- NOTE | 2016-10-20 05:33 | PN- Housestaff ---
Subjective Follow-up For: persistent cough hyperkalemia dyspnea secoundary to COPD exacerbation LORI Subjective: Patient seen and examined. She is seen sitting upright in her chair at bedside. She appears to be in no acute distress. She reports that her cough is persitent and causing mild chest/abdomen discomfort and is now productive of a clear mucous. She otherwise feels fine and has no new subjective complaints. Additionally she denies any headache, fever, chills, chest pain, worsening shortness of breath, nausea, vomiting, diarrhea. No overnight events reported. Review of Systems Constitutional: Reports: see HPI. Objective Last 24 Hrs of Vital Signs/I&O Vital Signs Date Time Temp Pulse Resp B/P B/P Pulse O2 O2 Flow FiO2 Mean Ox Delivery Rate 10/20 0915 92 Nasal 2.0L Cannula 10/20 0741 98.1 57 20 150/84 98 Nasal 2.0L Cannula 10/20 0000 Nasal 2.0L Cannula 10/19 2207 97.6 70 20 160/88 96 10/19 1900 95 Nasal 2.0L Cannula 10/19 1616 93 Room Air Room Air 10/19 1600 94 Room Air 10/19 1428 98.2 70 20 140/80 95 Room Air Intake & Output 10/20 1600 10/20 0800 10/20 0000 Intake Total 1080 Output Total Balance 1080 Intake, IV 600 Intake, Oral 480 Physical Exam General Appearance: Alert, Oriented X3, Cooperative, No Acute Distress Other Physical Findings: General - well developed, well nourished thing elderly woman in no acute distress HEENT- NCAT, PERRL, EOMI, anicteric sclera, nasal cannula in place CVS- S1, S2 w/o m/g/r Resp- diminished airflow bilaterally with scant bibasilar wheezing and audible productive cough, no crackles GI- Soft, nontender, nondistended, bowel sounds intact Neuro- Awake and alert, CN II - XII grossly intact Ext- normal pulses, no cyanosis/clubbing/edema Current Medications: Current Medications Sig/Tigre Start time Last Medication Dose Route Stop Time Status Admin Acetaminophen 650 MG Q6P PRN 10/18 1700 AC PO Albuterol Sulfate 3 ML EVERY 4 HRS/AWAKE 10/19 1999 AC 10/20 INH 1237 Albuterol Sulfate 3 ML Q4P PRN 10/18 1745 AC INH Albuterol Sulfate 2 PUF Q4-6 PRN PRN 10/18 1745 AC INH Amitriptyline HCl 10 MG QPM 10/18 2200 AC 10/19 PO 2156 Azithromycin 500 MG DAILY 10/20 1000 AC 10/20 PO 0927 Azithromycin 250 MG DAILY 10/19 1421 DC 10/19 PO 1559 Benzonatate 100 MG TID 10/18 1708 AC 10/20 PO 0925 Budesonide/ 2 PUF BID 10/18 2200 AC 10/20 Formoterol Fumarate INH 0927 Bupropion HCl 75 MG BID 10/18 2200 AC 10/20 PO 0925 Citalopram 40 MG DAILY 10/18 1735 AC 10/20 Hydrobromide PO 0926 Dextromethorphan/ 1 CAP Q12 10/18 2200 AC 10/20 Quinidine PO 0925 Docusate Sodium 100 MG DAILY 10/20 1150 AC PO Gabapentin 600 MG Q6 10/18 1800 AC 10/20 PO 1124 Guaifenesin/Codeine 10 ML Q6P PRN 10/20 1015 AC Phosphate PO Guaifenesin/ 10 ML Q6P PRN 10/19 1630 DC 10/20 Dextromethorphan PO 0930 Heparin Sodium 5,000 UNIT Q8 10/18 1645 AC 10/20 (Porcine) SC 0544 Magnesium Hydroxide 30 ML DAILY PRN 10/20 1200 AC PO Methylprednisolone 40 MG Q8 10/18 2200 DC 10/19 IV 1411 Omeprazole 20 MG BID 10/20 1000 AC 10/20 PO 0926 Oxycodone/ 2 TAB Q6P PRN 10/18 1715 AC 10/20 Acetaminophen PO 1024 Oxycodone/ 1 TAB Q6P PRN 10/18 1700 AC 10/19 Acetaminophen PO 1539 Patient Medication 1 UNIT ONE NR 10/20 0900 DC Teaching ED 10/20 0930 Pravastatin Sodium 20 MG QPM 10/18 2200 AC 10/19 PO 2156 Prednisone 60 MG DAILY 10/20 1000 AC 10/20 PO 0926 Tiotropium [place] 1 PUF DAILY 10/20 1000 AC 10/20 INH 0927 Trazodone HCl 50 MG QPM 10/18 2200 AC 10/19 PO 2156 Last 24 Hrs of Lab/Emre Results Last 24 Hrs of Labs/Mics: Laboratory Tests 10/20/16 0600: Anion Gap 7, Estimated GFR 56 L, BUN/Creatinine Ratio 23.0, CBC w Diff NO MAN DIFF REQ, RBC 3.90 L, MCV 91.7, MCH 29.5, RDW 15.4 H, MPV 7.5, Gran % 66.6, Lymphocytes % 28.1, Monocytes % 4.6, Eosinophils % 0.4, Basophils % 0.3, Absolute Granulocytes 10.6 H, Absolute Lymphocytes 4.5 H, Absolute Monocytes 0.7 H, Absolute Eosinophils 0.1, Absolute Basophils 0, PUBS MCHC 32.2 L Assessment/Plan Assessment: 63-year-old woman with more than [id number] history of smoking recently quit three weeks ago, pmh of COPD (not on home O2) history MRSA pneumonia, severe cord compression s/p in 09/14/2013, psuedobulbar affect on nuedexta, osteoporosis, anxiety, fibromyalgia brought by ambulance for desaturation and 7 day duration of persistent non productive cough. On admission afebrile, saturating 94% of 2LNC, labs pertinent for leucocytosis of 14.4 with left shift and no bandemia. hyperkalemia (5.8), creatinine/BUN 1.5/38 (baseline 1.2). CXR shows no acute pathology, CT chest significant for emphysematous changes of lung , scattered reticular nodular opacities of both lungs that are new since the CAT scan of 10/25/2015 most likely due to nonspecific infectious or inflammatory etiology. Hospital day 2 Patient continues to require supplemental oxygen but does not endorse any worsening shortness of breath. She states that her cough is now causing her some chest and abdominal discomfort, for which her robitussin will be changed to include Codeine. She remains afebrile with WBC elevated most likely secondary to steroids. She is to be continued on oral steroids and weaned off supplemental oxygen as tolerated. Creatinine has normalized today. Acute Hypoxic respiratory failure / COPD Exacerbation Patient with history of COPD not home home oxygen. -General Medicine -Supplemental oxygen, goal >92%, taper as tolerated -TRC with albuterol/ipratropium PRN -Azithromycin 500mg PO Daily -Prednisone 60mg PO Daily for 8 days then taper -Symbicort -Robitussin/AC 10mL PO Q6H PRN-cough -Tessalon Caps -Pulmonology consult Acute Kidney Injury - Resolved Patient creatinine as of 03/07/16 is 1.1. Creatinine initially found to be elevated to 1.2. -Avoid nephrotoxic agents such as NSAIDS -Lisinopril held -Intravenous fluids until creatinine at baseline -Daily BEP Pseudobulbar Affect -Trazodone 50mg PO QPM -Celexa 40mg PO Trey -Wellbutrin 75mg PO BID -Gabapentin 600mg PO Q6H -Amitriptyline 10mg PO QPM History of MRSA-Contact isolation Hyperlipidemia-Pravastatin 20mg PO QPM Pain Plan-Acetaminophen/Percocet Diet-Regular Diet DVT PPx-subcutaneous heparin Code Status-FULL CODE Problem List: 1. COPD (chronic obstructive pulmonary disease) Pain Ratin Pain Location: Chest/Abdomen due to coughing Pain Goal: Pain 4 or less Pain Plan: See assessment Tomorrow's Labs & Rationales: none
[2016-10-20 06:47] LABS: ABSOLUTE BASOPHIL COUNT 0 /CUMM (0.0-0.2); ABSOLUTE EOSINOPHIL COUNT 0.1 /CUMM (0.0-0.7); ABSOLUTE GRANULOCYTE CT 10.6 /CUMM (1.4-6.5); ABSOLUTE LYMPH COUNT 4.5 /CUMM (1.2-3.4); ABSOLUTE MONOCYTE COUNT 0.7 /CUMM (0.10-0.60); BASOPHIL % 0.3 % (0.0-2.0); EOSINOPHIL % 0.4 % (0-5); GRANULOCYTE % 66.6 % (42.2-75.2); HEMATOCRIT 35.8 % (37-47); MEAN CORPUSCULAR HGB 29.5 PG (27.0-31.0); MEAN CORPUSCULAR HGB CONC 32.2 G/DL (33.0-37.0); MEAN CORPUSCULAR VOLUME 91.7 FL (81.0-99.0); MEAN PLATELET VOLUME 7.5 FL (7.4-10.4); PLATELET COUNT 423 /CUMM (130-400); RBC DISTRIBUTION WIDTH 15.4 % (11.5-14.5)
[2016-10-20 07:16] LABS: WHITE BLOOD CELL COUNT 15.9 /CUMM (4.8-10.8)
[2016-10-20 07:41] VITALS: BP 150/84
--- NOTE | 2016-10-20 09:20 | PN- Pulmonary ---
Subjective HPI/Critical Care Issues: Feels a little better Cough is better Afebrile Objective Current Medications: Current Medications Sig/Tigre Start time Last Medication Dose Route Stop Time Status Admin Acetaminophen 650 MG Q6P PRN 10/18 1700 AC PO Albuterol Sulfate 3 ML EVERY 4 HRS/AWAKE 10/18 2000 AC 10/20 INH 0904 Albuterol Sulfate 3 ML Q4P PRN 10/18 1745 AC INH Albuterol Sulfate 2 PUF Q4-6 PRN PRN 10/18 1745 AC INH Amitriptyline HCl 10 MG QPM 10/18 2200 AC 10/19 PO 2156 Azithromycin 500 MG DAILY 10/20 1000 AC PO Azithromycin 250 MG DAILY 10/19 1421 DC 10/19 PO 1559 Benzonatate 100 MG TID 10/18 1708 AC 10/19 PO 2157 Budesonide/ 2 PUF BID 10/18 2200 AC 10/19 Formoterol Fumarate INH 2159 Bupropion HCl 75 MG BID 10/18 2200 AC 10/19 PO 2158 Citalopram 40 MG DAILY 10/18 1735 AC 10/19 Hydrobromide PO 0909 Dextromethorphan/ 1 CAP Q12 10/18 2200 AC 10/19 Quinidine PO 2157 Gabapentin 600 MG Q6 10/18 1800 AC 10/20 PO 0543 Guaifenesin/ 10 ML Q6P PRN 10/19 1630 AC 10/20 Dextromethorphan PO 0005 Heparin Sodium 5,000 UNIT Q8 10/18 1645 AC 10/20 (Porcine) SC 0544 Methylprednisolone 40 MG Q8 10/18 2200 DC 10/19 IV 1411 Omeprazole 20 MG BID 10/20 1000 AC PO Oxycodone/ 2 TAB Q6P PRN 10/18 1715 AC 10/20 Acetaminophen PO 0432 Oxycodone/ 1 TAB Q6P PRN 10/18 1700 AC 10/19 Acetaminophen PO 1539 Patient Medication 1 UNIT ONE NR 10/20 0900 AC Teaching ED 10/20 0930 Pravastatin Sodium 20 MG QPM 10/18 2200 AC 10/19 PO 2156 Prednisone 60 MG DAILY 10/20 1000 AC PO Tiotropium [place] 1 PUF DAILY 10/20 1000 AC INH Trazodone HCl 50 MG QPM 10/18 2200 AC 10/19 PO 2156 Vital Signs & I&O Last 24 Hrs of Vitals and I&O: Vital Signs Date Time Temp Pulse Resp B/P B/P Pulse O2 O2 Flow FiO2 Mean Ox Delivery Rate 10/20 0741 98.1 57 20 150/84 98 Nasal 2.0L Cannula 10/20 0000 Nasal 2.0L Cannula 10/19 2207 97.6 70 20 160/88 96 10/19 1900 95 Nasal 2.0L Cannula 10/19 1616 93 Room Air Room Air 10/19 1600 94 Room Air 10/19 1428 98.2 70 20 140/80 95 Room Air Intake & Output 10/20 1600 10/20 0800 10/20 0000 Intake Total 1080 Output Total Balance 1080 Intake, IV 600 Intake, Oral 480 Impression/Plan Impression/Plan Impression/Plan: CT chest IMPRESSION: 1. Emphysematous changes of lung. 2. Scattered reticular nodular opacities of both lungs that are new since the CAT scan of 10/25/2015 most likely due to nonspecific infectious or inflammatory etiology. Physical Exam General Appearance Alert, Oriented X3, Mild Distress, cachetic Skin No Significant Lesion HEENT Atraumatic, PERRLA, EOMI, Mucous Membr. moist/pink Cardiovascular Regular Rate, Normal S1, Normal S2 Lungs b/l coarse rhonchi in all lung bases Abdomen Normal Bowel Sounds, Soft, No Tenderness Extremities No Edema IMPRESSION This is a lady with end-stage COPD who unfortunately continues to smoke says she quit smoking with chronic pain syndrome now has SIg bronchiolitis with sig cough Previous c spine disease with rule out aspiration FIbromyalgia Chronic pain syndrome Recent aci use Sig gerd Rule out bacterial bronchiolitis REC po prednisone 60, taper in 8 days Continue azithromycin Sputum culture [place] 1 puff once a day CONt gabapentin and benzonatate Omeprazone po bid Keep hob up Nebs with albuterol Spiriva one puff daily first dose now Symbicort 160 po bid Change her Robitussin to Robitussin with codeine 1 teaspoon every 6 hours when necessary Will follow closely
[2016-10-20 14:40] VITALS: BP 145/82
[2016-10-20 22:34] VITALS: BP 140/80
--- NOTE | 2016-10-21 07:00 | PN- Housestaff ---
Subjective Follow-up For: persistent cough hyperkalemia dyspnea secoundary to COPD exacerbation LORI Subjective: seen and examined patient. She is still coughing however some improvement is noted. Denies fevers, chills, shortness of breath Review of Systems Constitutional: Denies: chills, diaphoresis, fever, malaise, weakness, unexplained weight loss. Cardiovascular: Denies: chest pain, edema, orthopena, palpitations, peripheral edema, syncope. Respiratory: Denies: cough, hemoptysis, orthopnea, short of breath, sputum production, stridor, wheezing. Objective Last 24 Hrs of Vital Signs/I&O Vital Signs Date Time Temp Pulse Resp B/P B/P Pulse O2 O2 Flow FiO2 Mean Ox Delivery Rate 10/21 1409 98.4 66 20 120/60 96 Room Air 10/21 1028 Nasal 2.0L Cannula 10/21 1019 Nasal 2.0L Cannula 10/21 0859 92 Nasal 2.0L Cannula 10/21 0800 93 Room Air 10/21 0734 97.8 71 20 140/80 95 Nasal 2.0L Cannula 10/21 0505 97 Nasal 2.0L Cannula 10/21 0000 Nasal 2.0L Cannula 10/20 2234 97.8 68 20 140/80 93 10/20 2001 97 Nasal 2.0L Cannula 10/20 1600 Nasal 2.0L Cannula 10/20 1440 98.0 80 20 145/82 98 Intake & Output 10/21 1600 10/21 0800 10/21 0000 Intake Total 120 500 Output Total Balance 120 500 Intake, Oral 120 500 Physical Exam General Appearance: Alert, Oriented X3, Cooperative, No Acute Distress Cardiovascular: Regular Rate, Normal S1, Normal S2 Lungs: Normal Air Movement, b/l rhonchi Abdomen: Normal Bowel Sounds, Soft, No Tenderness Extremities: No Edema Current Medications: Current Medications Sig/Tigre Start time Last Medication Dose Route Stop Time Status Admin Acetaminophen 650 MG Q6P PRN 10/18 1700 AC PO Albuterol Sulfate 3 ML EVERY 4 HRS/AWAKE 10/19 1999 AC 10/21 INH 1343 Albuterol Sulfate 3 ML Q4P PRN 10/18 1745 AC 10/20 INH 1958 Albuterol Sulfate 2 PUF Q4-6 PRN PRN 10/18 174 AC INH Amitriptyline HCl 10 MG QPM 10/18 2200 AC 10/20 PO 2026 Azithromycin 500 MG DAILY 10/20 1000 AC 10/21 PO 0931 Benzonatate 100 MG TID 10/18 1708 AC 10/21 PO 0931 Bisacodyl 5 MG DAILY 10/21 1400 AC PO Budesonide/ 2 PUF BID 10/18 2200 AC 10/21 Formoterol Fumarate INH 0936 Bupropion HCl 75 MG BID 10/18 2200 AC 10/21 PO 0931 Citalopram 40 MG DAILY 10/18 1735 AC 10/21 Hydrobromide PO 0931 Dextromethorphan/ 1 CAP Q12 10/18 2200 AC 10/21 Quinidine PO 0931 Docusate Sodium 100 MG DAILY 10/20 1150 AC 10/21 PO 0931 Gabapentin 600 MG Q6 10/18 1800 AC 10/21 PO 1139 Guaifenesin/Codeine 10 ML Q6P PRN 10/20 1015 AC 10/21 Phosphate PO 1147 Heparin Sodium 5,000 UNIT Q8 10/18 1645 AC 10/21 (Porcine) SC 0446 Lorazepam 1 MG ONCE ONE 10/21 0445 DC 10/21 IV 10/21 0446 0444 Magnesium Hydroxide 30 ML DAILY PRN 10/20 1200 AC 10/20 PO 2230 Mirtazapine 7.5 MG AT BEDTIME 10/21 220 CAN PO Omeprazole 20 MG BID 10/20 1000 AC 10/21 PO 0931 Oxycodone/ 2 TAB Q6P PRN 10/18 1715 AC 10/21 Acetaminophen PO 1147 Oxycodone/ 1 TAB Q6P PRN 10/18 1700 AC 10/19 Acetaminophen PO 1539 Patient Medication 1 ED .STK-MED ONE 10/21 1400 DC Teaching ED 10/21 1401 Pravastatin Sodium 20 MG QPM 10/18 2200 AC 10/20 PO 2025 Prednisone 60 MG DAILY 10/20 1000 AC 10/21 PO 0931 Tiotropium [place] 1 PUF DAILY 10/20 1000 AC 10/21 INH 0936 Trazodone HCl 50 MG QPM 10/18 2200 AC 10/20 PO 2024 Assessment/Plan Assessment: 63-year-old woman with more than [id number] history of smoking recently quit three weeks ago, pmh of COPD (not on home O2) history MRSA pneumonia, severe cord compression s/p in 09/14/2013, psuedobulbar affect on nuedexta, osteoporosis, anxiety, fibromyalgia brought by ambulance for desaturation and 7 day duration of persistent non productive cough. On admission afebrile, saturating 94% of 2LNC, labs pertinent for leucocytosis of 14.4 with left shift and no bandemia. hyperkalemia (5.8), creatinine/BUN 1.5/38 (baseline 1.2). CXR shows no acute pathology, CT chest significant for emphysematous changes of lung , scattered reticular nodular opacities of both lungs that are new since the CAT scan of 10/25/2015 most likely due to nonspecific infectious or inflammatory etiology. Hospital day 3 Patient continues to require supplemental oxygen . She remains afebrile with WBC elevated most likely secondary to steroids. She is to be continued on oral steroids and weaned off supplemental oxygen as tolerated. Creatinine has normalized today. Acute Hypoxic respiratory failure / COPD Exacerbation Patient with history of COPD not home home oxygen. -General Medicine -Supplemental oxygen, goal >92%, taper as tolerated -TRC with albuterol/ipratropium PRN -Azithromycin 500mg PO Daily day 3 -on PO Prednisone 8 day taper -Symbicort -Robitussin/AC 10mL PO Q6H PRN-cough -Tessalon Caps -Pulmonology on board, appreciate recomendation Hypertension will discontinue lisinopril and start norvasc 5mg Acute Kidney Injury - Resolved Patient creatinine as of 03/07/16 is 1.1. Creatinine initially found to be elevated to 1.2. -Avoid nephrotoxic agents such as NSAIDS Pseudobulbar Affect -Trazodone 50mg PO QPM -Celexa 40mg PO Trey -Wellbutrin 75mg PO BID -Gabapentin 600mg PO Q6H -Amitriptyline 10mg PO QPM History of MRSA-Contact isolation Hyperlipidemia-Pravastatin 20mg PO QPM Pain Plan-Acetaminophen/Percocet Diet-Regular Diet DVT PPx-subcutaneous heparin Code Status-FULL CODE Problem List: 1. COPD (chronic obstructive pulmonary disease) 2. Cough Pain Ratin Pain Location: na Pain Goal: Pain 4 or less Pain Plan: current regimen Tomorrow's Labs & Rationales: none required
[2016-10-21 07:34] VITALS: BP 140/80
[2016-10-21] MEDS ORDERED: AZITHROMYCIN500 M3 PO (09:12)
--- NOTE | 2016-10-21 09:26 | PN- Att Addend ---
Attending Addendum Attending Brief Note Patient reports persistent coughing and rib pain from coughing. General Appearance: Alert, No Acute Distress Skin: Grossly normal HEENT: PEERLA Neck: Supple, No JVD Cardiovascular: Regular Rate, Normal S1, Normal S2, No Murmurs Lungs: Generalized wheeze and decreased air entry Abdomen: Normal Bowel Sounds, Soft, No Tenderness Neurological: Normal Speech, Strength at 5/5 X4 Ext, Cranial Nerves 3-12 NL, Reflexes 2+ Extremities: No Clubbing, No Cyanosis, No Edema Vascular: Normal Pulses Assessment COPD exacerbation with extreme coughing fits. Unfortunately we don't have a sputum culture yet. Symptoms have somewhat improved however she has persistent coughing although lisinopril has been held. Doubt cough is related to lisinopril. We will continue prednisone and supportive care. We'll also get a PT evaluation. Plan Continue prednisone taper Continue azithromycin Induce and send sputum culture Continue inhalers PT evaluation Start Norvasc 5 mg daily Cough suppressant Current Medications Sig/Tigre Start time Last Medication Dose Route Stop Time Status Admin Acetaminophen 650 MG Q6P PRN 10/18 1700 AC PO Albuterol Sulfate 3 ML EVERY 4 HRS/AWAKE 10/18 2000 AC 10/21 INH 0858 Albuterol Sulfate 3 ML Q4P PRN 10/18 1745 AC 10/20 INH 1958 Albuterol Sulfate 2 PUF Q4-6 PRN PRN 10/18 1745 AC INH Amitriptyline HCl 10 MG QPM 10/18 2200 AC 10/20 PO 2025 Azithromycin 500 MG DAILY 10/20 1000 AC 10/20 PO 0927 Benzonatate 100 MG TID 10/18 1708 AC 10/20 PO 2024 Budesonide/ 2 PUF BID 10/18 2200 AC 10/20 Formoterol Fumarate INH 2030 Bupropion HCl 75 MG BID 10/18 2200 AC 10/20 PO 2025 Citalopram 40 MG DAILY 10/18 1735 AC 10/20 Hydrobromide PO 0926 Dextromethorphan/ 1 CAP Q12 10/18 2200 AC 10/20 Quinidine PO 2025 Docusate Sodium 100 MG DAILY 10/20 1150 AC 10/20 PO 1348 Gabapentin 600 MG Q6 10/18 1800 AC 10/21 PO 0450 Guaifenesin/Codeine 10 ML Q6P PRN 10/20 1015 AC 10/20 Phosphate PO 2228 Guaifenesin/ 10 ML Q6P PRN 10/19 1630 DC 10/20 Dextromethorphan PO 0930 Heparin Sodium 5,000 UNIT Q8 10/18 1645 AC 10/21 (Porcine) SC 0446 Lorazepam 1 MG ONCE ONE 10/21 0445 DC 10/21 IV 10/21 0446 0444 Magnesium Hydroxide 30 ML DAILY PRN 10/20 1200 AC 10/20 PO 2230 Omeprazole 20 MG BID 10/20 1000 AC 10/20 PO 202 Oxycodone/ 2 TAB Q6P PRN 10/18 1715 AC 10/21 Acetaminophen PO 0427 Oxycodone/ 1 TAB Q6P PRN 10/18 1700 AC 10/19 Acetaminophen PO 1539 Patient Medication 1 UNIT ONE NR 10/20 0900 DC Teaching ED 10/20 0930 Pravastatin Sodium 20 MG QPM 10/18 2200 AC 10/20 PO 2025 Prednisone 60 MG DAILY 10/20 1000 AC 10/20 PO 0926 Tiotropium [place] 1 PUF DAILY 10/20 1000 AC 10/20 INH 0927 Trazodone HCl 50 MG QPM 10/18 2200 AC 10/20 PO 202 Vital Signs Date Time Temp Pulse Resp B/P B/P Pulse O2 O2 Flow FiO2 Mean Ox Delivery Rate 10/21 0859 92 Nasal 2.0L Cannula 10/21 0734 97.8 71 20 140/80 95 Nasal 2.0L Cannula 10/21 0505 97 Nasal 2.0L Cannula 10/21 0000 Nasal 2.0L Cannula 10/204 97.8 68 20 140/80 93 10/20 2000 97 Nasal 2.0L Cannula 10/20 1600 Nasal 2.0L Cannula 10/20 1440 98.0 80 20 145/82 98
--- NOTE | 2016-10-21 10:41 | NUR ---
OXYGEN SATURATION 93% ON RA AT REST. AMBULATED IN [facility] WITH PHYSICAL THERAPY AND COMPLETED STAIRS. SATURATION 90% AFTER COMPLETING STAIRS. AMBULATED BACK TO ROOM, SATURATIONS RE-CHECKED, 92% AFTER FULL WALK. PT DOES C/O OF MILD SHORTNESS OF BREATH. WILL MONITOR.
--- NOTE | 2016-10-21 11:10 | PN- Pulmonary ---
Subjective HPI/Critical Care Issues: Little better afebrile cough little better Objective Current Medications: Current Medications Sig/Tigre Start time Last Medication Dose Route Stop Time Status Admin Acetaminophen 650 MG Q6P PRN 10/18 1700 AC PO Albuterol Sulfate 3 ML EVERY 4 HRS/AWAKE 10/18 2000 AC 10/21 INH 0858 Albuterol Sulfate 3 ML Q4P PRN 10/18 1745 AC 10/20 INH 1958 Albuterol Sulfate 2 PUF Q4-6 PRN PRN 10/18 1745 AC INH Amitriptyline HCl 10 MG QPM 10/18 2200 AC 10/20 PO 2026 Azithromycin 500 MG DAILY 10/20 1000 AC 10/21 PO 0931 Benzonatate 100 MG TID 10/18 1708 AC 10/21 PO 0931 Budesonide/ 2 PUF BID 10/18 2200 AC 10/21 Formoterol Fumarate INH 0936 Bupropion HCl 75 MG BID 10/18 2200 AC 10/21 PO 0931 Citalopram 40 MG DAILY 10/18 1735 AC 10/21 Hydrobromide PO 0931 Dextromethorphan/ 1 CAP Q12 10/18 2200 AC 10/21 Quinidine PO 0931 Docusate Sodium 100 MG DAILY 10/20 1150 AC 10/21 PO 0931 Gabapentin 600 MG Q6 10/18 1800 AC 10/21 PO 0450 Guaifenesin/Codeine 10 ML Q6P PRN 10/20 1015 AC 10/20 Phosphate PO 2228 Heparin Sodium 5,000 UNIT Q8 10/18 1645 AC 10/21 (Porcine) SC 0446 Lorazepam 1 MG ONCE ONE 10/21 0445 DC 10/21 IV 10/21 0446 0444 Magnesium Hydroxide 30 ML DAILY PRN 10/20 1200 AC 10/20 PO 2230 Omeprazole 20 MG BID 10/20 1000 AC 10/21 PO 0931 Oxycodone/ 2 TAB Q6P PRN 10/18 1715 AC 10/21 Acetaminophen PO 0427 Oxycodone/ 1 TAB Q6P PRN 10/18 1700 AC 10/19 Acetaminophen PO 1539 Pravastatin Sodium 20 MG QPM 10/18 2200 AC 10/20 PO 2025 Prednisone 60 MG DAILY 10/20 1000 AC 10/21 PO 0931 Tiotropium [place] 1 PUF DAILY 10/20 1000 AC 10/21 INH 0936 Trazodone HCl 50 MG QPM 10/180 AC 10/20 PO 2024 Vital Signs & I&O Last 24 Hrs of Vitals and I&O: Vital Signs Date Time Temp Pulse Resp B/P B/P Pulse O2 O2 Flow FiO2 Mean Ox Delivery Rate 10/21 1028 Nasal 2.0L Cannula 10/21 1019 Nasal 2.0L Cannula 10/21 0859 92 Nasal 2.0L Cannula 10/21 0800 93 Room Air 10/21 0734 97.8 71 20 140/80 95 Nasal 2.0L Cannula 10/21 0505 97 Nasal 2.0L Cannula 10/21 0000 Nasal 2.0L Cannula 10/20 2234 97.8 68 20 140/80 93 10/20 2000 97 Nasal 2.0L Cannula 10/20 1600 Nasal 2.0L Cannula 10/20 1440 98.0 80 20 145/82 98 Intake & Output 10/21 1600 10/21 0800 10/21 0000 Intake Total 120 500 Output Total Balance 120 500 Intake, Oral 120 500 Laboratory Tests 10/20 0600 Chemistry Sodium (137 - 145 mmol/L) 141 Potassium (3.5 - 5.1 mmol/L) 5.1 Chloride (98 - 107 mmol/L) 104 Carbon Dioxide (22 - 30 mmol/L) 30 Anion Gap (5 - 16) 7 BUN (7 - 17 mg/dL) 23 H Creatinine (0.5 - 1.0 mg/dL) 1.0 Estimated GFR (>60 ml/min) 56 L BUN/Creatinine Ratio (7 - 25 %) 23.0 Hematology CBC w Diff NO MAN DIFF REQ WBC (4.8 - 10.8 /CUMM) 15.9 H RBC (4.20 - 5.40 /CUMM) 3.90 L Hgb (12.0 - 16.0 G/DL) 11.5 L Hct (37 - 47 %) 35.8 L MCV (81.0 - 99.0 FL) 91.7 MCH (27.0 - 31.0 PG) 29.5 RDW (11.5 - 14.5 %) 15.4 H Plt Count (130 - 400 /CUMM) 423 H MPV (7.4 - 10.4 FL) 7.5 Gran % (42.2 - 75.2 %) 66.6 Lymphocytes % (20.5 - 51.1 %) 28.1 Monocytes % (1.7 - 9.3 %) 4.6 Eosinophils % (0 - 5 %) 0.4 Basophils % (0.0 - 2.0 %) 0.3 Absolute Granulocytes (1.4 - 6.5 /CUMM) 10.6 H Absolute Lymphocytes (1.2 - 3.4 /CUMM) 4.5 H Absolute Monocytes (0.10 - 0.60 /CUMM) 0.7 H Absolute Eosinophils (0.0 - 0.7 /CUMM) 0.1 Absolute Basophils (0.0 - 0.2 /CUMM) 0 PUBS MCHC (33.0 - 37.0 G/DL) 32.2 L Microbiology Date/Time Procedure - Status Source Growth 10/18 1750 Respiratory Culture - CAN LOWER RESP Cancelled: NO SPUTUM COLLECTED FOR MICRO DEPT 10/18 175 Gram Stain - CAN LOWER RESP Cancelled: NO SPUTUM COLLECTED FOR MICRO DEPT 10/18 1343 Influenza Virus A & B Rapid Smear - COMP NASOPHARYN 10/18 1223 Respiratory Culture - CAN LOWER RESP Cancelled: NO SPUTUM COLLECTED FOR MICRO DEPT 10/18 1223 Gram Stain - CAN LOWER RESP Cancelled: NO SPUTUM COLLECTED FOR MICRO DEPT Impression/Plan Impression/Plan Impression/Plan: CT chest IMPRESSION: 1. Emphysematous changes of lung. 2. Scattered reticular nodular opacities of both lungs that are new since the CAT scan of 10/25/2015 most likely due to nonspecific infectious or inflammatory etiology. Physical Exam General Appearance Alert, Oriented X3, Mild Distress, cachetic Skin No Significant Lesion HEENT Atraumatic, PERRLA, EOMI, Mucous Membr. moist/pink Cardiovascular Regular Rate, Normal S1, Normal S2 Lungs b/l coarse rhonchi in all lung bases Abdomen Normal Bowel Sounds, Soft, No Tenderness Extremities No Edema IMPRESSION This is a lady with end-stage COPD who unfortunately continues to smoke says she quit smoking with chronic pain syndrome now has SIg bronchiolitis with sig cough Previous c spine disease with rule out aspiration FIbromyalgia Chronic pain syndrome Recent aci use Sig gerd Rule out bacterial bronchiolitis REC po prednisone 50, taper in 8 days Continue azithromycin for five days Sputum culture Spiriva one puff daily CONt gabapentin and benzonatate Omeprazone po bid Keep hob up Nebs with albuterol Symbicort 160 po bid Will follow closely
[2016-10-21 14:09] VITALS: BP 120/60
[2016-10-21 22:37] VITALS: BP 150/70
[2016-10-22 06:30] VITALS: BP 142/80
--- NOTE | 2016-10-22 07:08 | Patient Discharge Instructions ---
Discharge Instructions General Discharge Information You were seen/treated for: COPD EXACERBATION COUGH Special Instructions: please follow up with your PCP within two weeks of discharge please follow up with your site supervising technical operator within two weeks of discharge Acute Coronary Syndrome Inclusion Criteria At DC or during hospital stay patient has or had the following: ACS DIAGNOSIS No Discharge Core Measures Meds if any: Prescribed or Continued at Discharge Meds if any: NOT Prescribed or Continued at Discharge Congestive Heart Failure Inclusion Criteria At DC or during hospital stay patient has or had the following: CHF DIAGNOSIS No Discharge Core Measures Meds if any: Prescribed or Continued at Discharge Meds if any: NOT Prescribed or Continued at Discharge Cerebrovascular accident Inclusion Criteria At DC or during hospital stay patient has or had the following: CVA/TIA Diagnosis No Discharge Core Measures Meds if any: Prescribed or Continued at Discharge Meds if any: NOT Prescribed or Continued at Discharge Venous thromboembolism Inclusion Criteria VTE Diagnosis No VTE Type NONE VTE Confirmed by (Test) NONE Discharge Core Measures - Per Current guidelines, there needs to be overlap - treatment for the first 5 days of Warfarin therapy. - If discharged on Warfarin prior to 5 days of - overlap therapy, the patient will need to be - assessed for post discharge needs including - *Post discharge parental anticoagulation - *Warfarin and/or parental anticoagulation education - *Follow up date to check INR post discharge At least 5 days overlap therapy as Inpatient No Meds if any: Prescribed or Continued at Discharge Note: Overlap Therapy is Warfarin and Anticoagulant Meds if any: NOT Prescribed or Continued at Discharge
[2016-10-22] MEDS ORDERED: AMLODIPINE BESYL5 M1 PO (07:09)
--- NOTE | 2016-10-22 09:20 | PN- Housestaff ---
Subjective Follow-up For: shortness of breath Subjective: Seen and examined patient, she feels anxious about going home today. Denies shortness of breath, fever, chills or abdominal pain. Her cough has improved but continues to be non productive. Review of Systems Constitutional: Denies: chills, diaphoresis, fever, malaise, weakness, unexplained weight loss. Cardiovascular: Denies: chest pain, edema, orthopena, palpitations, peripheral edema, syncope. Respiratory: Reports: cough. Denies: hemoptysis, orthopnea, short of breath, sputum production, stridor, wheezing. Objective Last 24 Hrs of Vital Signs/I&O Vital Signs Date Time Temp Pulse Resp B/P B/P Pulse O2 O2 Flow FiO2 Mean Ox Delivery Rate 10/22 0839 80 142/80 10/22 0810 92 Room Air 10/22 0800 93 Room Air 10/22 0630 98.6 80 20 142/80 91 Room Air 10/21 2237 98.5 74 20 150/70 92 Room Air 10/21 1710 88 Room Air 10/21 1409 98.4 66 20 120/60 96 Room Air Intake & Output 10/22 1600 10/22 0800 10/22 0000 Intake Total 200 Output Total Balance 200 Intake, Oral 200 Physical Exam General Appearance: Alert, Oriented X3, Cooperative, No Acute Distress Cardiovascular: Normal S1, Normal S2 Lungs: Normal Air Movement, b/l rhonchi Extremities: No Edema Current Medications: Current Medications Sig/Tigre Start time Last Medication Dose Route Stop Time Status Admin Acetaminophen 650 MG Q6P PRN 10/18 1700 AC PO Albuterol Sulfate 3 ML EVERY 4 HRS/AWAKE 10/18 2000 AC 10/22 INH 1202 Albuterol Sulfate 3 ML Q4P PRN 10/18 1745 AC 10/20 INH 1958 Albuterol Sulfate 2 PUF Q4-6 PRN PRN 10/18 1745 AC INH Amitriptyline HCl 10 MG QPM 10/18 2200 AC 10/21 PO 2219 Amlodipine Besylate 5 MG DAILY 10/21 1427 AC 10/22 PO 0839 Azithromycin 500 MG DAILY 10/20 1000 AC 10/22 PO 0839 Benzonatate 100 MG TID 10/18 1708 AC 10/22 PO 0839 Bisacodyl 5 MG DAILY 10/21 1400 AC 10/22 PO 0840 Budesonide/ 2 PUF BID 10/18 2200 AC 10/22 Formoterol Fumarate INH 0836 Bupropion HCl 75 MG BID 10/18 2200 AC 10/22 PO 0839 Citalopram 40 MG DAILY 10/18 1735 AC 10/22 Hydrobromide PO 0840 Dextromethorphan/ 1 CAP Q12 10/18 2200 AC 10/22 Quinidine PO 0839 Diazepam 2 MG BID PRN 10/21 1515 AC 10/21 PO 2354 Docusate Sodium 100 MG DAILY 10/20 1150 AC 10/22 PO 0840 Gabapentin 600 MG Q6 10/18 1800 AC 10/22 PO 0551 Guaifenesin/Codeine 10 ML Q6P PRN 10/20 1015 AC 10/22 Phosphate PO 0838 Heparin Sodium 5,000 UNIT Q8 10/18 1645 AC 10/22 (Porcine) SC 0551 Magnesium Hydroxide 30 ML DAILY PRN 10/20 1200 AC 10/20 PO 2230 Mirtazapine 7.5 MG AT BEDTIME 10/21 2200 CAN PO Omeprazole 20 MG BID 10/20 1000 AC 10/22 PO 0839 Oxycodone/ 2 TAB Q6P PRN 10/18 1715 AC 10/22 Acetaminophen PO 0837 Oxycodone/ 1 TAB Q6P PRN 10/18 1700 AC 10/19 Acetaminophen PO 1539 Patient Medication 1 ED .STK-MED ONE 10/21 1400 CA Teaching ED 10/21 1401 Pravastatin Sodium 20 MG QPM 10/18 2200 AC 10/21 PO 2220 Prednisone 50 MG DAILY 10/22 1000 AC 10/22 PO 0838 Prednisone 60 MG DAILY 10/20 1000 CA 10/21 PO 0931 Tiotropium [place] 1 PUF DAILY 10/20 1000 AC 10/22 INH 0840 Trazodone HCl 50 MG QPM 10/18 2200 AC 10/21 PO 2219 Assessment/Plan Assessment: 63-year-old woman with more than 57-[id number]-umde history of smoking recently quit three weeks ago, pmh of COPD (not on home O2) history MRSA pneumonia, severe cord compression s/p in 09/14/2013, psuedobulbar affect on nuedexta, osteoporosis, anxiety, fibromyalgia brought by ambulance for desaturation and 7 day duration of persistent non productive cough. On admission afebrile, saturating 94% of 2LNC, labs pertinent for leucocytosis of 14.4 with left shift and no bandemia. hyperkalemia (5.8), creatinine/BUN 1.5/38 (baseline 1.2). CXR shows no acute pathology, CT chest significant for emphysematous changes of lung , scattered reticular nodular opacities of both lungs that are new since the CAT scan of 10/25/2015 most likely due to nonspecific infectious or inflammatory etiology. Hospital day 4 Now saturating on RA, She remains afebrile with WBC elevated most likely secondary to steroids. She is to be continued on oral steroids. Acute Hypoxic respiratory failure / COPD Exacerbation Patient with history of COPD not home home oxygen. -General Medicine -currently on RA -TRC with albuterol/ipratropium PRN -Azithromycin 500mg PO Daily day 3 -on PO Prednisone 8 day taper -Symbicort -Robitussin/AC 10mL PO Q6H PRN-cough -Tessalon Caps -Pulmonology on board, appreciate recomendations -will benefit from Pulm rehab Hypertension continue norvasc 5mg Acute Kidney Injury - Resolved Last creatinine 1.0 -Avoid nephrotoxic agents such as NSAIDS Pseudobulbar Affect -Trazodone 50mg PO QPM -Celexa 40mg PO Trey -Wellbutrin 75mg PO BID -Gabapentin 600mg PO Q6H -Amitriptyline 10mg PO QPM History of MRSA-Contact isolation Hyperlipidemia-Pravastatin 20mg PO QPM Pain Plan-Acetaminophen/Percocet Diet-Regular Diet DVT PPx-subcutaneous heparin Code Status-FULL CODE Problem List: 1. Cough 2. COPD exacerbation Pain Ratin Pain Location: na Pain Goal: Pain 4 or less Pain Plan: current regimen Tomorrow's Labs & Rationales: none required
--- NOTE | 2016-10-22 09:35 | PN- Att Addend ---
Attending Addendum Attending Brief Note Patient reports persistent coughing and rib pain from coughing. She complains of extreme weakness and shortness of breath with exertion. General Appearance: Alert, No Acute Distress Skin: Grossly normal HEENT: PEERLA Neck: Supple, No JVD Cardiovascular: Regular Rate, Normal S1, Normal S2, No Murmurs Lungs: Generalized wheeze and decreased air entry Abdomen: Normal Bowel Sounds, Soft, No Tenderness Neurological: Normal Speech, Strength at 5/5 X4 Ext, Cranial Nerves 3-12 NL, Reflexes 2+ Extremities: No Clubbing, No Cyanosis, No Edema Vascular: Normal Pulses Assessment COPD exacerbation with extreme coughing fits and generalized deconditioning. Unfortunately we don't have a sputum culture. Symptoms have somewhat improved however she has persistent coughing although lisinopril has been held. Doubt cough is related to lisinopril. We will continue prednisone and supportive care. Patient will benefit with short term rehabilitation placement. Plan Continue prednisone taper Continue azithromycin Induce and send sputum culture Continue inhalers Cough suppressant Current Medications Sig/Tigre Start time Last Medication Dose Route Stop Time Status Admin Acetaminophen 650 MG Q6P PRN 10/18 1700 AC PO Albuterol Sulfate 3 ML EVERY 4 HRS/AWAKE 10/18 2000 AC 10/22 INH 0756 Albuterol Sulfate 3 ML Q4P PRN 10/18 1745 AC 10/20 INH 1958 Albuterol Sulfate 2 PUF Q4-6 PRN PRN 10/18 1745 AC INH Amitriptyline HCl 10 MG QPM 10/18 2200 AC 10/21 PO 2219 Amlodipine Besylate 5 MG DAILY 10/21 1427 AC 10/22 PO 0839 Azithromycin 500 MG DAILY 10/20 1000 AC 10/22 PO 0839 Benzonatate 100 MG TID 10/18 1708 AC 10/22 PO 0839 Bisacodyl 5 MG DAILY 10/21 1400 AC 10/22 PO 0840 Budesonide/ 2 PUF BID 10/18 2200 AC 10/22 Formoterol Fumarate INH 0836 Bupropion HCl 75 MG BID 10/18 2200 AC 10/22 PO 0839 Citalopram 40 MG DAILY 10/18 1735 AC 10/22 Hydrobromide PO 0840 Dextromethorphan/ 1 CAP Q12 10/18 2200 AC 10/22 Quinidine PO 0839 Diazepam 2 MG BID PRN 10/21 1515 AC 10/21 PO 2354 Docusate Sodium 100 MG DAILY 10/20 1150 AC 10/22 PO 0840 Gabapentin 600 MG Q6 10/18 1800 AC 10/22 PO 0551 Guaifenesin/Codeine 10 ML Q6P PRN 10/20 1015 AC 10/22 Phosphate PO 0838 Heparin Sodium 5,000 UNIT Q8 10/18 1645 AC 10/22 (Porcine) SC 0551 Magnesium Hydroxide 30 ML DAILY PRN 10/20 1200 AC 10/20 PO 2230 Mirtazapine 7.5 MG AT BEDTIME 10/21 2200 CAN PO Omeprazole 20 MG BID 10/20 1000 AC 10/22 PO 0839 Oxycodone/ 2 TAB Q6P PRN 10/18 1715 AC 10/22 Acetaminophen PO 0837 Oxycodone/ 1 TAB Q6P PRN 10/18 1700 AC 10/19 Acetaminophen PO 1539 Patient Medication 1 ED .STK-MED ONE 10/21 1400 DC Teaching ED 10/21 1401 Pravastatin Sodium 20 MG QPM 10/18 2200 AC 10/21 PO 2220 Prednisone 50 MG DAILY 10/22 1000 AC 10/22 PO 0838 Prednisone 60 MG DAILY 10/20 1000 DC 10/21 PO 0931 Tiotropium [place] 1 PUF DAILY 10/20 1000 AC 10/22 INH 0840 Trazodone HCl 50 MG QPM 10/18 2200 AC 10/21 PO 2219 Vital Signs Date Time Temp Pulse Resp B/P B/P Pulse O2 O2 Flow FiO2 Mean Ox Delivery Rate 10/22 0839 80 142/80 10/22 0810 92 Room Air 10/22 0630 98.6 80 20 142/80 91 Room Air 10/21 2237 98.5 74 20 150/70 92 Room Air 10/21 1710 88 Room Air 10/21 1409 98.4 66 20 120/60 96 Room Air 10/21 1028 Nasal 2.0L Cannula 10/21 1019 Nasal 2.0L Cannula
--- NOTE | 2016-10-22 09:55 | PN- Pulmonary ---
Subjective HPI/Critical Care Issues: Cough much improved afebrile stable Objective Current Medications: Current Medications Sig/Tigre Start time Last Medication Dose Route Stop Time Status Admin Acetaminophen 650 MG Q6P PRN 10/18 1700 AC PO Albuterol Sulfate 3 ML EVERY 4 HRS/AWAKE 10/18 2000 AC 10/22 INH 0756 Albuterol Sulfate 3 ML Q4P PRN 10/18 1745 AC 10/20 INH 1958 Albuterol Sulfate 2 PUF Q4-6 PRN PRN 10/18 1745 AC INH Amitriptyline HCl 10 MG QPM 10/18 2200 AC 10/21 PO 2219 Amlodipine Besylate 5 MG DAILY 10/21 1427 AC 10/22 PO 0839 Azithromycin 500 MG DAILY 10/20 1000 AC 10/22 PO 0839 Benzonatate 100 MG TID 10/18 1708 AC 10/22 PO 0839 Bisacodyl 5 MG DAILY 10/21 1400 AC 10/22 PO 0840 Budesonide/ 2 PUF BID 10/18 2200 AC 10/22 Formoterol Fumarate INH 0836 Bupropion HCl 75 MG BID 10/18 2200 AC 10/22 PO 0839 Citalopram 40 MG DAILY 10/18 1735 AC 10/22 Hydrobromide PO 0840 Dextromethorphan/ 1 CAP Q12 10/18 2200 AC 10/22 Quinidine PO 0839 Diazepam 2 MG BID PRN 10/21 1515 AC 10/21 PO 2354 Docusate Sodium 100 MG DAILY 10/20 1150 AC 10/22 PO 0840 Gabapentin 600 MG Q6 10/18 1800 AC 10/22 PO 0551 Guaifenesin/Codeine 10 ML Q6P PRN 10/20 1015 AC 10/22 Phosphate PO 0838 Heparin Sodium 5,000 UNIT Q8 10/18 1645 AC 10/22 (Porcine) SC 0551 Magnesium Hydroxide 30 ML DAILY PRN 10/20 1200 AC 10/20 PO 2230 Mirtazapine 7.5 MG AT BEDTIME 10/21 2200 CAN PO Omeprazole 20 MG BID 10/20 1000 AC 10/22 PO 0839 Oxycodone/ 2 TAB Q6P PRN 10/18 1715 AC 10/22 Acetaminophen PO 0837 Oxycodone/ 1 TAB Q6P PRN 10/18 1700 AC 10/19 Acetaminophen PO 1539 Patient Medication 1 ED .STK-MED ONE 10/21 1400 DC Teaching ED 10/21 1401 Pravastatin Sodium 20 MG QPM 10/18 2200 AC 10/21 PO 2220 Prednisone 50 MG DAILY 10/22 1000 AC 10/22 PO 0838 Prednisone 60 MG DAILY 10/20 1000 DC 10/21 PO 0931 Tiotropium [place] 1 PUF DAILY 10/20 1000 AC 10/22 INH 0840 Trazodone HCl 50 MG QPM 10/18 2200 AC 10/21 PO 2219 Vital Signs & I&O Last 24 Hrs of Vitals and I&O: Vital Signs Date Time Temp Pulse Resp B/P B/P Pulse O2 O2 Flow FiO2 Mean Ox Delivery Rate 10/22 0839 80 142/80 10/22 0810 92 Room Air 10/22 0630 98.6 80 20 142/80 91 Room Air 10/21 2237 98.5 74 20 150/70 92 Room Air 10/21 1710 88 Room Air 10/21 1409 98.4 66 20 120/60 96 Room Air 10/21 1028 Nasal 2.0L Cannula 10/21 1019 Nasal 2.0L Cannula Intake & Output 10/22 1600 10/22 0800 10/22 0000 Intake Total 200 Output Total Balance 200 Intake, Oral 200 Impression/Plan Impression/Plan Impression/Plan: CT chest IMPRESSION: 1. Emphysematous changes of lung. 2. Scattered reticular nodular opacities of both lungs that are new since the CAT scan of 10/25/2015 most likely due to nonspecific infectious or inflammatory etiology. Physical Exam General Appearance Alert, Oriented X3, Mild Distress, cachetic Skin No Significant Lesion HEENT Atraumatic, PERRLA, EOMI, Mucous Membr. moist/pink Cardiovascular Regular Rate, Normal S1, Normal S2 Lungs b/l coarse rhonchi in all lung bases Abdomen Normal Bowel Sounds, Soft, No Tenderness Extremities No Edema IMPRESSION This is a lady with end-stage COPD who unfortunately continues to smoke says she quit smoking with chronic pain syndrome now has SIg bronchiolitis with sig cough improving Previous c spine disease with rule out aspiration FIbromyalgia Chronic pain syndrome Recent aci use Sig gerd Rule out bacterial bronchiolitis REC po prednisone 50, taper in 8 days Continue azithromycin for five days, if she has any sputum can switch to doxy for seven days Sputum culture Spiriva one puff daily CONt gabapentin and benzonatate Omeprazone po bid Keep hob up Nebs with albuterol Symbicort 160 po bid Will follow closely
[2016-10-22 15:26] VITALS: BP 146/72
[2016-10-22 22:23] VITALS: BP 160/70
[2016-10-23 06:42] VITALS: BP 150/90
--- NOTE | 2016-10-23 08:33 | Discharge Summary ---
Visit Information Visit Dates Admission Date: 10/18/16 Discharge Date: 10/23/16 Hospital Course Course Attending Physician: CHAPIS MORALES MD Primary Care Physician: CHAPIS MORALES MD Hospital Course: 66-year-old female with extensive smoking history quit 3 weeks ago with past medical history significant for COPD, MRSA pneumonia in the past, osteoporosis/osteopenia, chronic respiratory failure, hypertension, pseudo- bulbar affect, anxiety and depression and spinal stenosis status post laminectomy came with chief complaint of persistent cough and shortness of breath for more than a week. Treated with IV Solu-Medrol and a azithromycin for COPD exacerbation/hypoxic respiratory failure. Evaluated by pulmonology, (Dr. Gu). She improved gradually however she is deconditioned, peer to peer was done to see if shes eligible for acute rehab/pulmonary rehab. She was not, She's discharged home. Discharged on azithromycin for a total duartion of 5 days, symbicort inhaler bid, tessalon pearls for cough, and a prednisone taper. Problem #1 COPD exacerbation Problem# 2 Hypoxic respiratory failure Problem #2 hyperkalemia Problem #3 LORI due to dehydration Allergies: Coded Allergies: naproxen (Severe, THROAT CLOSES 09/14/15) ciprofloxacin (From CIPRO ) (UNKNOWN 09/14/15) hydrocortisone (From CIPRO ) (UNKNOWN 09/14/15) Pertinent Lab Results: Vital Signs Date Time Temp Pulse Resp B/P B/P Pulse O2 O2 Flow FiO2 Mean Ox Delivery Rate 10/23 0642 97.6 68 20 150/90 95 Room Air 10/23 0558 Room Air 10/23 0000 Room Air 10/22 2223 97.6 70 20 160/70 94 05/ 1640 93 Room Air / 1526 98.6 78 20 146/72 94 / 0839 80 142/80 05/02 0810 92 Room Air 10/22 0800 93 Room Air 10/22 0630 98.6 80 20 142/80 91 Room Air 10/21 2237 98.5 74 20 150/70 92 Room Air 10/21 1710 88 Room Air 10/21 1409 98.4 66 20 120/60 96 Room Air 10/21 1028 Nasal 2.0L Cannula 10/21 1019 Nasal 2.0L Cannula 10/21 0859 92 Nasal 2.0L Cannula 10/21 0800 93 Room Air 10/21 0734 97.8 71 20 140/80 95 Nasal 2.0L Cannula 10/21 0505 97 Nasal 2.0L Cannula 10/21 0000 Nasal 2.0L Cannula 10/20 2234 97.8 68 20 140/80 93 10/20 2001 97 Nasal 2.0L Cannula 10/20 1600 Nasal 2.0L Cannula 10/20 1440 98.0 80 20 145/82 98 10/20 0915 92 Nasal 2.0L Cannula 10/20 0800 Nasal 2.0L Cannula 10/20 0741 98.1 57 20 150/84 98 Nasal 2.0L Cannula 10/20 0000 Nasal 2.0L Cannula 10/19 2207 97.6 70 20 160/88 96 10/19 1900 95 Nasal 2.0L Cannula 10/19 1616 93 Room Air Room Air 10/19 1600 94 Room Air 10/19 1428 98.2 70 20 140/80 95 Room Air 10/19 0918 97 Nasal 1.0L Cannula 10/19 0800 98 Nasal 2.0L Cannula 10/19 0715 97.9 63 20 140/72 94 Nasal 2.5L Cannula 10/19 0000 Nasal 2.0L Cannula 10/18 2238 98.1 70 20 110/62 96 Nasal 2.0L Cannula 10/18 202 97.1 67 16 120/60 95 Nasal 2.0L Cannula 10/18 2018 Nasal 2.0L Cannula 10/18 1930 98.1 70 24 124/58 96 Nasal 2.0L Cannula 10/18 1819 Nasal 2.0L Cannula 10/18 1755 98.7 72 18 133/66 95 10/18 1604 97.5 84 22 124/84 94 Nasal 2.0L Cannula 10/18 1411 97.7 87 28 128/86 94 Nasal 2.0L Cannula 10/18 1253 92 Nasal 2.0L Cannula 10/18 1223 98.2 80 32 132/83 96 Aerosol 8L Mask Last 24 Hours I&Os 10/23 1600 10/23 0800 10/23 0000 Intake Total 300 400 Output Total Balance 300 400 Intake, Oral 300 400 Microbiology Date/Time Procedure - Status Source Growth 10/18 1750 Respiratory Culture - CAN LOWER RESP Cancelled: NO SPUTUM COLLECTED FOR MICRO DEPT 04/28 1751 Gram Stain - CAN LOWER RESP Cancelled: NO SPUTUM COLLECTED FOR MICRO DEPT 10/18 1343 Influenza Virus A & B Rapid Smear - COMP NASOPHARYN Orders Procedure Date/time Status MISSING MEDICATION FORM 10/23 UNK Active RT: Reevaluation 10/21 2148 Active SPECIMEN TO BE OBTAINED 10/21 1417 Active PT Evaluate & Treat 10/21 UNK Active PT EVAL LOW COMPLEX 20 MIN 10/21 UNK Complete Gait Training 10/21 UNK Complete Anticipated Discharge 10/21 UNK Active AEROSOL CHG 10/20 UNK Complete OXYGEN 10/20 UNK Complete OXYGEN DAILY CHARGE 10/20 UNK Complete AEROSOL CHG 10/19 UNK Complete OXYGEN 10/19 UNK Complete OXYGEN DAILY CHARGE 10/19 UNK Complete OXYGEN SETUP CHG 10/18 UNK Complete AEROSOL CHG 10/18 UNK Complete OXYGEN 10/18 UNK Complete OXYGEN TRANSPORT 10/18 UNK Complete Disposition Summary Disposition Principal Diagnosis: see above Additional Diagnosis: see above Discharge Disposition: pulmonary rehab/str Discharge Instructions General Discharge Information Code Status: Full Code Patient's Diet: regular Patient's Activity: self limited Follow-Up Instructions/Appts: quinn parry Medications at Discharge Discharge Medications: Stop taking the following medications: Fluticasone/Salmeterol (Advair 250-50 Diskus) 250 MCG-50 MCG/DOSE BLST.W.DEV Inhale through mouth TWICE DAILY Lisinopril (Lisinopril) 10 MG TABLET ORAL DAILY Qty = 30 Prednisone (Prednisone) 10 MG TABLET ORAL DAILY Qty = 30 Cefuroxime Axetil (Cefuroxime) 500 MG TABLET ORAL TWICE DAILY Qty = 14 Sulfamethoxazole/Trimethoprim (Sulfamethoxazole-Tmp Ds Tablet) 800 MG-160 MG TABLET ORAL TWICE DAILY Qty = 10 Continue taking these medications: Citalopram Hydrobromide (Celexa) 40 MG TABLET 1 Tablet ORAL DAILY Comments: Last Taken: 10/23/16 Time: 10AM Trazodone HCl (Trazodone HCl) 50 MG TABLET 1 Tablet ORAL Every night Comments: Last Taken: 10/22/16 Time: 10PM Cyclobenzaprine HCl (Cyclobenzaprine HCl) 10 MG TABLET 1 Tablet ORAL THREE TIMES DAILY as needed for MUSCLE Amitriptyline HCl (Amitriptyline HCl) 10 MG TABLET 1 Tablet ORAL Every night Comments: Last Taken: 10/22/16 Time: 10PM Pravastatin Sodium (Pravachol) 20 MG TABLET 1 Tablet ORAL Every night Comments: Last Taken: 10/22/16 Time: 10PM Dextromethorphan HBr/Quinidine (Nuedexta 20-10 MG Capsule) 20 MG-10 MG CAPSULE 1 Capsule ORAL EVERY 12 HOURS Qty = 60 Comments: Last Taken: 10/23/16 Time: 10AM Alendronate Sodium (Alendronate Sodium) 70 MG TABLET 1 Tablet ORAL Once a Week Qty = 12 Instructions: in the morning, at least 30 minutes before the first food, beverage, or medication of the day Comments: NOT GIVEN WHILE IN HOSPITAL Diazepam (Diazepam) 2 MG TABLET 1 Tablet ORAL 2 x Daily as needed as needed for RELAX Qty = 60 Comments: Last Taken: 10/21/16 Time: 12AM [place]-3 Acid Ethyl Esters ([place]-3 Acid Ethyl Esters) 1 GRAM CAPSULE 2 Capsule ORAL TWICE DAILY Comments: NOT GIVEN WHILE IN HOSPITAL Albuterol Sulfate (Ventolin Hfa) 90 MCG HFA.AER.AD 2 Puff Inhale through mouth EVERY 4-6 HOURS NEEDED as needed for BREATHING Qty = 18 Comments: NOT GIVEN WHILE IN HOSPITAL Umeclidinium [place] (Incruse Ellipta) 62.5 MCG/ACTUATION BLST.W.DEV 1 Inhalation Inhale through mouth Every Day Comments: NOT GIVEN WHILE IN HOSPITAL Bupropion HCl (Bupropion HCl) 75 MG TABLET 1 Tablet ORAL TWICE DAILY Qty = 60 Comments: Last Taken: 10/23/16 Time: 10AM Gabapentin (Gabapentin) 600 MG TABLET 1 Tablet ORAL 4 TIMES A DAY Qty = 120 Comments: Last Taken: 10/23/16 Time: 12PM Albuterol Sulfate (Albuterol Sulfate) 2.5 MG/3 ML (0.083 %) VIAL.NEB 1 Vial Inhale Solution EVERY 4 HOURS NEEDED as needed for SHORTNESS OF BREATH Start taking the following new medications: Amlodipine Besylate (Amlodipine Besylate) 5 MG TABLET 5 Milligram ORAL DAILY Qty = 30 No Refills Comments: Last Taken: 10/23/16 Time: 10AM Budesonide/Formoterol Fumarate (Symbicort 160-4.5 Mcg Inhaler) 160 MCG-4.5 MCG/ ACTUATION HFA.AER.AD 2 Puff Inhale through mouth TWICE DAILY Qty = 1 No Refills Comments: Last Taken: 10/23/16 Time: 10AM Prednisone (Prednisone) 10 MG TABLET 1 Tablet ORAL DAILY Qty = 20 No Refills Instructions: TAPER BELOW: 4 TABS FOR 2 DAYS; 3 TABS FOR 2 DAYS; 2 TABS FOR 2 DAYS; 1 TAB FOR 2 DAYS; THEN STOP. Comments: Last Taken: 10/23/16 Time: 10AM Benzonatate (Tessalon [place]) 100 MG CAPSULE 1 Capsule ORAL THREE TIMES DAILY Qty = 30 No Refills Comments: Last Taken: 10/23/16 Time: 10AM Copies To: DARIANA TAYLOR,CHAPIS CALLAHAN MD Attending MD Review Statement Documenting Attending: CHAPIS MORALES MD
--- NOTE | 2016-10-23 09:34 | PN- Att Addend ---
Attending Addendum Attending Brief Note Patient reports impaired cough symptoms and she is currently off oxygen and ambulating with minimal symptoms. General Appearance: Alert, No Acute Distress Skin: Grossly normal HEENT: PEERLA Neck: Supple, No JVD Cardiovascular: Regular Rate, Normal S1, Normal S2, No Murmurs Lungs: Generalized wheeze and decreased air entry Abdomen: Normal Bowel Sounds, Soft, No Tenderness Neurological: Normal Speech, Strength at 5/5 X4 Ext, Cranial Nerves 3-12 NL, Reflexes 2+ Extremities: No Clubbing, No Cyanosis, No Edema Vascular: Normal Pulses Assessment COPD exacerbation with extreme coughing fits and generalized deconditioning. Unfortunately we don't have a sputum culture. Symptoms have somewhat improved however she has persistent coughing although lisinopril has been held. Doubt cough is related to lisinopril. We will continue prednisone and supportive care. Plan Continue prednisone taper Continue azithromycin Continue inhalers Cough suppressant Discharge home with home services Current Medications Sig/Tigre Start time Last Medication Dose Route Stop Time Status Admin Acetaminophen 650 MG Q6P PRN 10/18 1700 AC PO Albuterol Sulfate 3 ML EVERY 4 HRS/AWAKE 10/18 2000 AC 10/23 INH 0557 Albuterol Sulfate 3 ML Q4P PRN 10/18 1745 AC 10/20 INH 1958 Albuterol Sulfate 2 PUF Q4-6 PRN PRN 10/18 1745 AC INH Amitriptyline HCl 10 MG QPM 10/18 2200 AC 10/22 PO 2209 Amlodipine Besylate 5 MG DAILY 10/21 1427 AC 10/22 PO 0839 Azithromycin 500 MG DAILY 10/20 1000 AC 10/22 PO 0839 Benzonatate 100 MG TID 10/18 1708 AC 10/22 PO 2209 Bisacodyl 5 MG DAILY 10/21 1400 AC 10/22 PO 0840 Budesonide/ 2 PUF BID 10/18 2200 AC 10/22 Formoterol Fumarate INH 2210 Bupropion HCl 75 MG BID 10/18 2200 AC 10/22 PO 2211 Citalopram 40 MG DAILY 10/18 1735 AC 10/22 Hydrobromide PO 0840 Dextromethorphan/ 1 CAP Q12 10/18 2200 AC 10/22 Quinidine PO 2253 Diazepam 2 MG BID PRN 10/21 1515 AC 10/21 PO 2354 Docusate Sodium 100 MG DAILY 10/20 1150 AC 10/22 PO 0840 Gabapentin 600 MG Q6 10/18 1800 AC 10/23 PO 0523 Guaifenesin/Codeine 10 ML .STK-MED ONE 10/22 2302 DC Phosphate PO 10/22 2303 Guaifenesin/Codeine 10 ML Q6P PRN 10/20 1015 AC 10/23 Phosphate PO 0522 Heparin Sodium 5,000 UNIT Q8 10/18 1645 AC 10/23 (Porcine) SC 0523 Magnesium Hydroxide 30 ML DAILY PRN 10/20 1200 AC 10/20 PO 2230 Omeprazole 20 MG BID 10/20 1000 AC 10/22 PO 2209 Oxycodone/ 2 TAB Q6P PRN 10/18 1715 AC 10/23 Acetaminophen PO 0523 Oxycodone/ 1 TAB Q6P PRN 10/18 1700 AC 10/22 Acetaminophen PO 2254 Patient Medication 1 ED .STK-MED ONE 10/22 1418 DC Teaching ED 10/22 1419 Pravastatin Sodium 20 MG QPM 10/18 2200 AC 10/22 PO 2210 Prednisone 50 MG DAILY 10/22 1000 AC 10/22 PO 0838 Tiotropium [place] 1 PUF DAILY 10/20 1000 AC 10/22 INH 0840 Trazodone HCl 50 MG QPM 10/18 2200 AC 10/22 PO 2209 Vital Signs Date Time Temp Pulse Resp B/P B/P Pulse O2 O2 Flow FiO2 Mean Ox Delivery Rate 10/23 0642 97.6 68 20 150/90 95 Room Air 10/23 0558 Room Air 10/23 0000 Room Air 10/22 2223 97.6 70 20 160/70 94 / 1640 93 Room Air 10/22 1526 98.6 78 20 146/72 94
[2016-10-23 10:10] VITALS: BP 118/52
[2016-10-23] MEDS ORDERED: PREDNISONE10 M2 PO (10:58)
--- NOTE | 2016-10-23 11:01 | PN- Housestaff ---
Subjective Follow-up For: shortness of breath cough Subjective: Seen and examined patient, States her breathing has improved except when she has her coughing fits. Denies shortness of breath, fever, chills or abdominal pain. Review of Systems Constitutional: Denies: chills, diaphoresis, fever, malaise, weakness, unexplained weight loss. Cardiovascular: Denies: chest pain, edema, orthopena, palpitations, peripheral edema, syncope. Respiratory: Reports: cough. Denies: hemoptysis, orthopnea, short of breath, sputum production, stridor, wheezing. Objective Last 24 Hrs of Vital Signs/I&O Vital Signs Date Time Temp Pulse Resp B/P B/P Pulse O2 O2 Flow FiO2 Mean Ox Delivery Rate 10/23 1010 118/52 10/23 0800 Room Air 10/23 0642 97.6 68 20 150/90 95 Room Air 10/23 0558 Room Air 10/23 0000 Room Air 10/22 2223 97.6 70 20 160/70 94 / 1640 93 Room Air 10/22 1526 98.6 78 20 146/72 94 Intake & Output 10/23 1600 10/23 0800 10/23 0000 Intake Total 300 400 Output Total Balance 300 400 Intake, Oral 300 400 Physical Exam General Appearance: Alert, Oriented X3, Cooperative, No Acute Distress Cardiovascular: Regular Rate, Normal S1, Normal S2 Lungs: Clear to Auscultation, Normal Air Movement Extremities: No Edema Current Medications: Current Medications Sig/Tigre Start time Last Medication Dose Route Stop Time Status Admin Acetaminophen 650 MG Q6P PRN 10/18 1700 AC PO Albuterol Sulfate 3 ML EVERY 4 HRS/AWAKE 10/18 2000 AC 10/23 INH 1127 Albuterol Sulfate 3 ML Q4P PRN 10/18 1745 AC 10/20 INH 1958 Albuterol Sulfate 2 PUF Q4-6 PRN PRN 10/18 1745 AC INH Amitriptyline HCl 10 MG QPM 10/18 2200 AC 10/22 PO 2209 Amlodipine Besylate 5 MG DAILY 10/21 1427 AC 10/23 PO 1010 Azithromycin 500 MG DAILY 10/20 1000 AC 10/23 PO 1009 Benzonatate 100 MG TID 10/18 1708 AC 10/23 PO 1009 Bisacodyl 5 MG DAILY 10/21 1400 AC 10/23 PO 1010 Budesonide/ 2 PUF BID 10/18 2200 AC 10/23 Formoterol Fumarate INH 1012 Bupropion HCl 75 MG BID 10/18 2200 AC 10/23 PO 1009 Citalopram 40 MG DAILY 10/18 1735 AC 10/23 Hydrobromide PO 1010 Dextromethorphan/ 1 CAP Q12 10/18 2200 AC 10/23 Quinidine PO 1009 Diazepam 2 MG BID PRN 10/21 1515 AC 10/21 PO 2354 Docusate Sodium 100 MG DAILY 10/20 1150 AC 10/23 PO 1010 Gabapentin 600 MG Q6 10/18 1800 AC 10/23 PO 0523 Guaifenesin/Codeine 10 ML .STK-MED ONE 10/22 2302 DC Phosphate PO 10/22 2303 Guaifenesin/Codeine 10 ML Q6P PRN 10/20 1015 AC 10/23 Phosphate PO 0522 Heparin Sodium 5,000 UNIT Q8 10/18 1645 AC 10/23 (Porcine) SC 0523 Magnesium Hydroxide 30 ML DAILY PRN 10/20 1200 AC 10/20 PO 2230 Omeprazole 20 MG BID 10/20 1000 AC 10/23 PO 1009 Oxycodone/ 2 TAB Q6P PRN 10/18 1715 AC 05/03 Acetaminophen PO 0523 Oxycodone/ 1 TAB Q6P PRN 10/18 1700 AC 10/22 Acetaminophen PO 2254 Patient Medication 1 ED .STK-MED ONE 10/22 1418 DC Teaching ED 10/22 1419 Pravastatin Sodium 20 MG QPM 10/18 2200 AC 10/22 PO 2210 Prednisone 50 MG DAILY 10/22 1000 AC 10/23 PO 1009 Tiotropium [place] 1 PUF DAILY 10/20 1000 AC 10/23 INH 1012 Trazodone HCl 50 MG QPM 10/18 2200 AC 10/22 PO 2209 Assessment/Plan Assessment: 63-year-old woman with more than 97-aloh-dtfl history of smoking recently quit three weeks ago, pmh of COPD (not on home O2) history MRSA pneumonia, severe cord compression s/p in 09/14/2013, psuedobulbar affect on nuedexta, osteoporosis, anxiety, fibromyalgia brought by ambulance for desaturation and 7 day duration of persistent non productive cough. On admission afebrile, saturating 94% of 2LNC, labs pertinent for leucocytosis of 14.4 with left shift and no bandemia. hyperkalemia (5.8), creatinine/BUN 1.5/38 (baseline 1.2). CXR shows no acute pathology, CT chest significant for emphysematous changes of lung , scattered reticular nodular opacities of both lungs that are new since the CAT scan of 10/25/2015 most likely due to nonspecific infectious or inflammatory etiology. Hospital day 5 Now saturating on RA, She remains afebrile with WBC elevated most likely secondary to steroids. She is to be continued on oral steroids. Acute Hypoxic respiratory failure / COPD Exacerbation Patient with history of COPD not home home oxygen. -General Medicine -currently on RA -TRC with albuterol/ipratropium PRN -completed course of azithromycin -on PO Prednisone 8 day taper -Symbicort -Robitussin/AC 10mL PO Q6H PRN-cough -Tessalon Caps -Pulmonology on board, appreciate recomendations -medically stable for discharge with [facility] Hypertension continue norvasc 5mg Acute Kidney Injury - Resolved Last creatinine 1.0 -Avoid nephrotoxic agents such as NSAIDS Pseudobulbar Affect -Trazodone 50mg PO QPM -Celexa 40mg PO Trey -Wellbutrin 75mg PO BID -Gabapentin 600mg PO Q6H -Amitriptyline 10mg PO QPM History of MRSA-Contact isolation Hyperlipidemia-Pravastatin 20mg PO QPM Pain Plan-Acetaminophen/Percocet Diet-Regular Diet DVT PPx-subcutaneous heparin Code Status-FULL CODE Problem List: 1. Cough 2. COPD exacerbation Pain Ratin Pain Location: na Pain Goal: Pain 4 or less Pain Plan: current regimen Tomorrow's Labs & Rationales: none required
[2016-10-23] MEDS ORDERED: SYMBICORT 16010.2 GM INH (11:08)
[2016-10-23] MEDS ORDERED: TESSALON PERLE100 M1 PO (11:08)
--- NOTE | 2016-10-23 13:39 | PN- Pulmonary ---
Subjective HPI/Critical Care Issues: Doing well afebrile vss Objective Current Medications: Current Medications Sig/Tigre Start time Last Medication Dose Route Stop Time Status Admin Acetaminophen 650 MG Q6P PRN 10/18 1700 AC PO Albuterol Sulfate 3 ML EVERY 4 HRS/AWAKE 10/18 2000 AC 03 INH 1127 Albuterol Sulfate 3 ML Q4P PRN 10/18 1745 AC 10/20 INH 1958 Albuterol Sulfate 2 PUF Q4-6 PRN PRN 10/18 1745 AC INH Amitriptyline HCl 10 MG QPM 10/18 2200 AC 10/22 PO 2209 Amlodipine Besylate 5 MG DAILY 10/21 1427 AC 10/23 PO 1010 Azithromycin 500 MG DAILY 10/20 1000 AC 10/23 PO 1009 Benzonatate 100 MG TID 10/18 1708 AC 10/23 PO 1009 Bisacodyl 5 MG DAILY 10/21 1400 AC 10/23 PO 1010 Budesonide/ 2 PUF BID 10/18 2200 AC 10/23 Formoterol Fumarate INH 1012 Bupropion HCl 75 MG BID 10/18 2200 AC 10/23 PO 1009 Citalopram 40 MG DAILY 10/18 1735 AC 10/23 Hydrobromide PO 1010 Dextromethorphan/ 1 CAP Q12 10/18 2200 AC 10/23 Quinidine PO 1009 Diazepam 2 MG BID PRN 10/21 1515 AC 10/21 PO 2354 Docusate Sodium 100 MG DAILY 10/20 1150 AC 10/23 PO 1010 Gabapentin 600 MG Q6 10/18 1800 AC 10/23 PO 1223 Guaifenesin/Codeine 10 ML .STK-MED ONE 10/22 2302 DC Phosphate PO 10/22 2303 Guaifenesin/Codeine 10 ML Q6P PRN 10/20 1015 AC 03 Phosphate PO 1222 Heparin Sodium 5,000 UNIT Q8 10/18 1645 AC 10/23 (Porcine) SC 0523 Magnesium Hydroxide 30 ML DAILY PRN 10/20 1200 AC 10/20 PO 2230 Omeprazole 20 MG BID 10/20 1000 AC 10/23 PO 1009 Oxycodone/ 2 TAB Q6P PRN 10/18 1715 AC 10/23 Acetaminophen PO 1223 Oxycodone/ 1 TAB Q6P PRN 10/18 1700 AC 10/22 Acetaminophen PO 2254 Patient Medication 1 ED .STK-MED ONE 10/[address] Teaching ED 10/22 1419 Pravastatin Sodium 20 MG QPM 10/18 2200 AC 10/22 PO 2210 Prednisone 50 MG DAILY 10/22 1000 AC 10/23 PO 1009 Tiotropium [place] 1 PUF DAILY 10/20 1000 AC 10/23 INH 1012 Trazodone HCl 50 MG QPM 10/18 2200 AC 10/22 PO 2209 Vital Signs & I&O Last 24 Hrs of Vitals and I&O: Vital Signs Date Time Temp Pulse Resp B/P B/P Pulse O2 O2 Flow FiO2 Mean Ox Delivery Rate 10/23 1010 118/52 10/23 0800 Room Air 10/23 0642 97.6 68 20 150/90 95 Room Air 10/23 0558 Room Air 10/23 0000 Room Air 10/22 2223 97.6 70 20 160/70 94 / 1640 93 Room Air 10/22 1526 98.6 78 20 146/72 94 Intake & Output 10/23 1600 10/23 0800 10/23 0000 Intake Total 300 400 Output Total Balance 300 400 Intake, Oral 300 400 Impression/Plan Impression/Plan Impression/Plan: CT chest IMPRESSION: 1. Emphysematous changes of lung. 2. Scattered reticular nodular opacities of both lungs that are new since the CAT scan of 10/25/2015 most likely due to nonspecific infectious or inflammatory etiology. Physical Exam General Appearance Alert, Oriented X3, Mild Distress, cachetic Skin No Significant Lesion HEENT Atraumatic, PERRLA, EOMI, Mucous Membr. moist/pink Cardiovascular Regular Rate, Normal S1, Normal S2 Lungs b/l coarse rhonchi in all lung bases Abdomen Normal Bowel Sounds, Soft, No Tenderness Extremities No Edema IMPRESSION This is a lady with end-stage COPD who unfortunately continues to smoke says she quit smoking with chronic pain syndrome now has SIg bronchiolitis with sig cough improving Previous c spine disease with rule out aspiration FIbromyalgia Chronic pain syndrome Recent aci use Sig gerd Rule out bacterial bronchiolitis REC po prednisone 50, taper in 8 days Continue azithromycin for five days, if she has any sputum can switch to doxy for seven days Sputum culture Spiriva one puff daily CONt gabapentin and benzonatate Omeprazone po bid Keep hob up Nebs with albuterol Symbicort 160 po bid Will follow closely as out pt Pt can be dcd
== END 2016-10-23 15:51 | disposition home health service (06) | DRG 190 ==
LOC: ERH 12:14 → 2NA 15:43 → ERHI 15:43 → ENRESERV 17:53 → 2NA 19:50 → ENPENDDIS 10-23 11:16 → 2NA 10-23 15:51
PROVIDERS: Internal Medicine; Physician Assistant; ADMIT Internal Medicine
DX: J44.1 Chronic obstructive pulmonary disease with (acute) exacerbation (principal); J96.21 Acute and chronic respiratory failure with hypoxia; N17.9 Acute kidney failure, unspecified; R64 Cachexia; Z68.1 Body mass index [BMI] 19.9 or less, adult; E87.5 Hyperkalemia; M81.0 Age-related osteoporosis without current pathological fracture; F41.9 Anxiety disorder, unspecified; M79.7 Fibromyalgia; E78.5 Hyperlipidemia, unspecified; J45.909 Unspecified asthma, uncomplicated; E55.9 Vitamin D deficiency, unspecified; Z87.891 Personal history of nicotine dependence
CPT/HCPCS: 2NAP; 82436; 87070; 87804; 87804-59; 93005; 93010; 94644; 96361; 96374; 97116-GO; 97161-GP; J0456; J1644; J2060; J2920; J2930; J3490

== ENCOUNTER → 2017-12-05 | Day surgery (SDC) | payer OTHER ==
[~2017-12-05] VITALS: Ht 152.4 cm; Wt 47.6 kg
[~2017-12-05] MED LIST changes: +ALBUTEROL2.5 MG/3 M INH/SOL; +AMLODIPINE BESYL5 M1 PO; +AZITHROMYCIN500 M3 PO; +BUPROPION HCL75 M1 PO; +CALTRATE 600 +1 EACH PO; +CEFUROXIME500 MG PO; +GABAPENTIN600 M1 PO; +GINKGO BILOBA60 M1 PO; +LISINOPRIL10 M1 PO; +LYRICA75 M1 PO; +PREDNISONE10 M2 PO; +SPIRIVA RESPIMAT4 GM INH; +SULFAMETHOXAZO1 EAC1 PO; +SUPER B COMPLE1 EACH PO; +SYMBICORT 16010.2 GM INH; +TESSALON PERLE100 M1 PO
--- NOTE | 2017-12-05 15:22 | Operative Report ---
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 She was then placed in dorsal lithotomy position. A speculum was placed in the patient's vagina. Lugol's solution was then applied to the cervix. No lesions were visualized. 10 mL of 1% lidocaine were injected into the cervix circumferentially. The electrocautery loop was then used to excise first the anterior portion of the cervix followed by the posterior portion of the cervix in the same fashion. The narrow electrocautery loop was then used to excise a portion of the endocervical canal. The rollerball was then applied to the remainder of the cervix to desiccate the exposed tissue. Excellent hemostasis was noted. A small amount of Monsel solution was then applied to the cervix. Portions of the cervix and endocervical canal were then sent to pathology. All instruments were then removed from the patient's vagina. All counts were reported to be correct 2. The patient was then taken to the recovery room in stable condition. Discharge Disposition: Same Day Admissions
== END ==
LOC: STS 03:03
DX: D06.9 Carcinoma in situ of cervix, unspecified (principal); I10 Essential (primary) hypertension; J44.9 Chronic obstructive pulmonary disease, unspecified; F17.200 Nicotine dependence, unspecified, uncomplicated; M79.7 Fibromyalgia
CPT/HCPCS: J0131; J2250

== ENCOUNTER 2017-12-18 17:20 | Emergency (ER) | payer OTHER ==
[~2017-12-18] VITALS: Ht 152.4 cm; Wt 46.7 kg
--- NOTE | 2017-12-18 17:43 | ED GI/GU/ABDOMINAL COMPLAINT ---
History of Present Illness General Chief Complaint: Female Urogenital Problems Stated Complaint: SENT BY DR FOR HEAVY VAGINAL BLEEDING Source: patient Exam Limitations: no limitations Vital Signs & Intake/Output Vital Signs & Intake/Output Vital Signs Date Time Temp Pulse Resp B/P B/P Pulse O2 O2 Flow FiO2 Mean Ox Delivery Rate 12/18 2133 98.0 63 20 118/54 93 Room Air Room Air 12/18 1942 63 18 102/70 92 Room Air 12/18 1830 70 18 110/68 93 Room Air 12/18 1812 Room Air 12/18 1724 97.6 77 20 106/58 96 Room Air Allergies Coded Allergies: naproxen (Severe, THROAT CLOSES 09/14/15) ciprofloxacin (From [facility]RO [facility]) (AFFECTED ACHILLES TENDON 12/04/17) hydrocortisone (From C[facility]RO HC) (AFFECTED ACHILLES TENDON 12/04/17) lisinopril (COUGHING 12/03/17) Triage Note: PT SENT TO ED BY [facility] FOR VAGINAL BLEEDING AND WBC OF 19. PT IS S/P LEEP PROCEDURE BY DR MCCARTHY ON 12/05 HERE. PT C/O PELVIC PAIN. PT WENT FOR F/U AT [facility] TODAY, BLOODWORK WAS DRAWN AND SHOWED WBC OF 19,000. OFFICE WOULD LIKE EVAL FOR ? PID, IV ABX. GERARD CANALES FROM [facility] CAN BE REACHED AT [phone]. Triage Nurses Notes Reviewed? yes ? N Is pt currently ? No Duration: better Timing: recent history Severity Numbers: 8 Location: suprapubic Radiation: no radiation HPI: PT SENT TO ED BY [facility] FOR VAGINAL BLEEDING AND WBC OF 19. PT IS S/P LEEP PROCEDURE BY DR MCCARTHY ON 12/05 HERE. PT C/O PELVIC PAIN. PT WENT FOR F/U AT [facility] TODAY, BLOODWORK WAS DRAWN AND SHOWED WBC OF 19,000. OFFICE WOULD LIKE EVAL FOR ? PID, IV ABX. GERARD CANALES FROM [facility] CAN BE REACHED AT [phone]. Patient is a 67-year-old female with a past medical history of hypertension hyperlipidemia COPD who currently smokes anxiety and HPV were patient had a scheduled LEEP procedure performed by FLIGHT FOLLOWER Dr. Mccarthy on December 05 patient states that the following week she had expected mild vaginal spotting however last evening patient had significant vaginal clot bleeding and passage they continued today this morning however she has been complaining of severe suprapubic abdominal cramping pain patient took Tylenol with no relief of symptoms states that the bleeding has stopped prior to arrival Patient denies any fever chills chest pain back pain Patient can tolerate by mouth prior to arrival (Jag Bernard) Reconcile Medications Albuterol Sulfate (Ventolin Hfa) 90 MCG HFA.AER.AD 2 PUF INH Q4-6 PRN PRN BREATHING (Reported) Albuterol Sulfate 2.5 MG/3 ML (0.083 %) VIAL.NEB 1 Vial INH/KELLY Q4P PRN SHORTNESS OF BREATH (Reported) Alendronate Sodium 70 MG TABLET 1 TAB PO QWED BONES (Reported) in the morning, at least 30 minutes before the first food, beverage, or medication of the day Amitriptyline HCl 10 MG TABLET 1 TAB PO QPM MENTAL HEALTH (Reported) Amlodipine Besylate 5 MG TABLET 5 MG PO DAILY BLOOD PRESSURE Amoxicillin/Potassium Clav (Augmentin 875-125 Tablet) 875 MG-125 MG TABLET 1 TAB PO BID PNEUMONIA B Complex With Vitamin C (Super B Complex-Vitamin C) 1 EACH TABLET 1 TAB PO DAILY SUPPLEMENT (Reported) Budesonide/Formoterol Fumarate (Symbicort 160-4.5 Mcg Inhaler) 160 MCG-4.5 MCG/ ACTUATION HFA.AER.AD 2 PUF INH BID COPD Calcium Carbonate/Vitamin D3 (Caltrate 600 + D Tablet) 600 MG-800 TABLET 1 TAB PO BID SUPPLEMENT (Reported) Cyclobenzaprine HCl 10 MG TABLET 1 TAB PO TID PRN MUSCLE (Reported) Dextromethorphan HBr/Quinidine (Nuedexta 20-10 MG Capsule) 20 MG-10 MG CAPSULE 1 CAP PO Q12 BREATHING (Reported) Diazepam 2 MG TABLET 1 TAB PO BIDP PRN ANXIETY (Reported) Fluticasone/Salmeterol (Advair 250-50 Diskus) 250 MCG-50 MCG/DOSE BLST.W.DEV 1 PUF INH BID COPD (Reported) Ginkgo Biloba 60 MG CAPSULE 1 CAP PO BID SUPPLEMENT (Reported) [place]-3 Acid Ethyl Esters 1 GRAM CAPSULE 2 CAP PO BID CHOLESTEROL (Reported) Pravastatin Sodium (Pravachol) 20 MG TABLET 1 TAB PO QPM CHOLESTEROL ( Reported) Prednisone 10 MG TABLET 1 TAB PO BID COPD DAY1/DAY2 FOUR TABS DAY 3/DAY4 THREE TABS DAY5/DAY6 TWO TABS DAY 7 ONE TAB Pregabalin (Lyrica) 75 MG CAPSULE 1 CAP PO BID NERVE PAIN (Reported) Tiotropium [place] (Spiriva Respimat) 2.5 MCG/ACTUATION MIST.INHAL 1 PUFF INH DAILY COPD (Reported) Trazodone HCl 50 MG TABLET 1 TAB PO QPM SLEEP (Reported) (Juaquin Sierra MD) Past History Travel History Traveled to [place] past 21 day No Medical History Any Pertinent Medical History? 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 Relation not specified for: Diabetes mellitus (DM) FHx: lung cancer FHx: malignant neoplasm of bone Hx Contributory? No (Jag Bernard) Review of Systems Review of Systems Constitutional: Reports: no symptoms. EENTM: Reports: no symptoms. Respiratory: Reports: no symptoms. Cardiovascular: Reports: no symptoms. GI: Reports: see HPI, abdominal pain. Genitourinary: Reports: see HPI. Musculoskeletal: Reports: no symptoms. Skin: Reports: no symptoms. Neurological/Psychological: Reports: no symptoms. Hematologic/Endocrine: Reports: see HPI, bleeding. Immunologic/Allergic: Reports: no symptoms. All Other Systems: Reviewed and Negative (Jag Bernard) Physical Exam Physical Exam General Appearance: no apparent distress, alert, comfortable Head: atraumatic Eyes: Bilateral: normal appearance. Ears, Nose, Throat, Mouth: moist mucous membrane Neck: normal inspection Respiratory: no respiratory distress, LEFT LUNG CRACKLES Cardiovascular: regular rate/rhythm Gastrointestinal: normal bowel sounds, tenderness Neurologic/Psych: no motor/sensory deficits, awake, alert Skin: intact, normal color, warm/dry Core Measures ACS in differential dx? No Sepsis Present: No Sepsis Focused Exam Completed? No (Mike GEE,Jag) Progress Differential Diagnosis: AAA, AMI, appendicitis, biliary colic, bowel obstruction , colon cancer, cholecystitis, diverticulitis, endometritis, esophageal varices, gastritis, hepatitis, hernia, hemorrhoids, ischemic bowel, inflamm bowel dis, kidney stone, Ana María-Devendra tear, ovarian cyst, ovarian torsion, pancreatitis, PID/cervicitis, peptic ulcer, PUD/GERD, perforated viscous, SBO, UTI/pyelo Plan of Care: Orders Procedure Date/time Status LACTIC ACID 12/19 2023 Active BLOOD CULTURE 12/18 1738 Active CULTURE,URINE 12/19 1723 Active URINALYSIS 12/19 1723 Complete LACTIC ACID 12/19 1723 Complete COMPREHENSIVE METABOLIC PANEL 12/19 1723 Complete CBC WITHOUT DIFFERENTIAL 12/19 1723 Complete Laboratory Tests 12/18/172014: Urine Color YEL, Urine Clarity CLEAR, Urine pH 6.5, Ur Specific [place] <= 1.005 , Urine Protein NEG, Urine Ketones NEG, Urine Nitrite NEG, Urine Bilirubin NEG, Urine Urobilinogen 0.2, Ur Leukocyte Esterase MOD H, Ur Microscopic SEDIMENT EXAMINED, Urine RBC 1-3, Urine WBC 5-10 H, Ur Epithelial Cells MOD H, Urine Bacteria FEW H, Urine Mucus FEW, Urine Hemoglobin MOD H, Urine Glucose NEG 12/18/17 1800: Anion Gap 11, Estimated GFR 50 L, BUN/Creatinine Ratio 16.4, Glucose 100 H, Lactic Acid 1.0, Calcium 9.4, Total Bilirubin 0.4, AST 28, ALT 24, Alkaline Phosphatase 67, Total Protein 6.7, Albumin 4.1, Globulin 2.6, Albumin/Globulin Ratio 1.6, CBC w Diff NO MAN DIFF REQ, RBC 4.30, MCV 85.6, MCH 28.4, MCHC 33.2, RDW 15.8 H, MPV 7.7, Gran % 76.2 H, Lymphocytes % 16.4 L, Monocytes % 5.3, Eosinophils % 1.9, Basophils % 0.2, Absolute Granulocytes 13.4 H, Absolute Lymphocytes 2.9, Absolute Monocytes 0.9 H, Absolute Eosinophils 0.3, Absolute Basophils 0 Microbiology 12/18 2014 URINE ROUT: Urine Culture - RECD 12/18 1800 BLOOD: Blood Culture - RECD 12/18 1758 BLOOD: Blood Culture - RECD Patient on initial presentation is afebrile and normotensive and resting comfortable at bedside patient has moderate suprapubic point tenderness 1946 patient was reevaluated states symptoms of pain improved with 2 mg of morphine however is recurring patient was given another 2 mg of morphine No intra-abdominal or pelvic processes noted after CT scan result, patient states that she's had a chronic cough however denies any new changes denies any fevers Denies any wheezing or shortness of breath CT scan shows concerns of pneumonia Discussed patient Dr. Alvarado who agrees with disposition plan he strongly advised patient to follow up with DR CARMONA Patient has a follow-up appointment established with Dr. Santos on Friday Patient was strongly advised to return to emergency room if symptoms worsen or she develops new concerning symptoms patient and family members agree with disposition and plan I DISCUSSED PT RESULTS WITH [facility] PA WHO WAS AWARE AND AGREES PT IS NONTOXIC APPEARING AFEBRILE Diagnostic Imaging: Viewed by Me: CT Scan. Radiology Impression: acute abnormality Initial ED EKG: none Comments: PATIENT: LUI WILLIAM PRESENT AGE: 67 PATIENT ACCOUNT NO: [id number] : 51 LOCATION: [facility] ORDERING PHYSICIAN: Jeni GEE SERVICE DATE: 12/18/17 EXAM TYPE: CAT - CT ABD & PELVIS W IV CONTRAST EXAMINATION: CT ABDOMEN AND PELVIS WITH CONTRAST CLINICAL INFORMATION: Pelvic pain, bleeding and fever status post LEEP procedure. COMPARISON: CT chest 10/18/2016. TECHNIQUE: Multidetector volumetric imaging was performed of the abdomen and pelvis following IV administration of 95 mL of Optiray 320 intravenous contrast. Sagittal and coronal reformatted images were obtained on the technologist's workstation. DLP: 231.79 mGy-cm FINDINGS: LUNG BASES: Small patchy parenchymal opacity in the right middle lobe anteriorly and at the dependent right posterior lung base suspicious for small infiltrate. LIVER, GALLBLADDER, AND BILIARY TREE: The liver is normal in size, shape, and attenuation. No focal hepatic lesion or biliary ductal dilatation is present. The gallbladder is unremarkable with no evidence of radiopaque gallstones, gallbladder wall thickening, or obvious pericholecystic inflammatory changes. PANCREAS: Unremarkable. SPLEEN: Unremarkable. ADRENAL GLANDS: Unremarkable. KIDNEYS AND URETERS: The kidneys are normal in size, shape, and attenuation. No hydronephrosis, hydroureter, or calculi seen. No perinephric stranding. Small cortical cysts in the kidneys bilateral. BLADDER: Unremarkable. GASTROINTESTINAL TRACT: The small and large bowel are unremarkable. The appendix is unremarkable. ABDOMINAL WALL: No significant hernia is appreciated. LYMPH NODES: Normal. VASCULAR: Unremarkable. PELVIC VISCERA: Unremarkable. OSSEOUS STRUCTURES: Multilevel degenerative spondylosis of spine with endplate spurring, disc height narrowing and facet joint arthrosis. Grade 1 anterolisthesis of L4 on L5 due to facet joint disease. No spondylolysis. IMPRESSION: 1. There is no acute abnormality of the abdomen or the pelvis. 2. Airspace opacities at the anterior right middle lobe and the posterior right lower lobe, pneumonic infiltrates. DICTATED BY: Som Albarran MD DATE/TIME DICTATED:12/18/171858 STEAM HAMMER OPERATOR:SHARRON (Jag Bernard) Departure Departure Disposition: HOME OR SELF CARE Condition: Stable Clinical Impression Primary Impression: Abdominal pain Secondary Impressions: Pneumonia Referrals: Elizabeth TAYLOR,Jo Ann Peguero (PCP/Family) Additional Instructions: discussed follow-up with your [facility] tomorrow, follow up WITH YOUR primary care doctor ON FRIDAY YOU HAVE AN APPOINTMENT BEGIN the prescription of prednisone and Augmentin as directed. Prescriptions waiting [facility] BEGIN the prescription of Vicodin for pain if symptoms worsen or should develop new A concerning symptom return to emergency room. STOP smoking Departure Forms: Customer Survey General Discharge Information Prescriptions: Current Visit Scripts Amoxicillin/Potassium Clav (Augmentin 875-125 Tablet) 1 TAB PO BID #20 TAB Prednisone 1 TAB PO BID #19 TAB DAY1/DAY2 FOUR TABS DAY 3/DAY4 THREE TABS DAY5/DAY6 TWO TABS DAY 7 ONE TAB (Jag Bernard) PA/STULL INSTALLER Co-Sign Statement Statement: ED Attending supervision documentation- x I saw and evaluated the patient. I have also reviewed all the pertinent lab results and diagnostic results. I agree with the findings and the plan of care as documented in the PA's/STULL INSTALLER's documentation. [] I have reviewed the ED Record and agree with the PA's/STULL INSTALLER's documentation. [] Additions or exceptions (if any) to the PAs/STULL INSTALLER's note and plan are summarized below: [] (Mariela TAYLOR,Juaquin)
[2017-12-18 18:12] LABS: ABSOLUTE BASOPHIL COUNT 0 /CUMM (0.0-0.2); ABSOLUTE EOSINOPHIL COUNT 0.3 /CUMM (0.0-0.7); ABSOLUTE GRANULOCYTE CT 13.4 /CUMM (1.4-6.5); ABSOLUTE LYMPH COUNT 2.9 /CUMM (1.2-3.4); ABSOLUTE MONOCYTE COUNT 0.9 /CUMM (0.10-0.60); BASOPHIL % 0.2 % (0.0-2.0); EOSINOPHIL % 1.9 % (0-5); GRANULOCYTE % 76.2 % (42.2-75.2); HEMATOCRIT 36.8 % (37-47); MEAN CORPUSCULAR HGB 28.4 PG (27.0-31.0); MEAN CORPUSCULAR HGB CONC 33.2 G/DL (33.0-37.0); MEAN CORPUSCULAR VOLUME 85.6 FL (81.0-99.0); MEAN PLATELET VOLUME 7.7 FL (7.4-10.4); PLATELET COUNT 273 /CUMM (130-400); RBC DISTRIBUTION WIDTH 15.8 % (11.5-14.5)
[2017-12-18 18:23] LABS: WHITE BLOOD CELL COUNT 17.5 /CUMM (4.8-10.8)
--- NOTE | 2017-12-18 20:29 | CT SCAN REPORT ---
EXAMINATION: CT ABDOMEN AND PELVIS WITH CONTRAST CLINICAL INFORMATION: Pelvic pain, bleeding and fever status post LEEP procedure. COMPARISON: CT chest 10/18/2016. TECHNIQUE: Multidetector volumetric imaging was performed of the abdomen and pelvis following IV administration of 95 mL of Optiray 320 intravenous contrast. Sagittal and coronal reformatted images were obtained on the technologist's workstation. DLP: 231.79 mGy-cm FINDINGS: LUNG BASES: Small patchy parenchymal opacity in the right middle lobe anteriorly and at the dependent right posterior lung base suspicious for small infiltrate. LIVER, GALLBLADDER, AND BILIARY TREE: The liver is normal in size, shape, and attenuation. No focal hepatic lesion or biliary ductal dilatation is present. The gallbladder is unremarkable with no evidence of radiopaque gallstones, gallbladder wall thickening, or obvious pericholecystic inflammatory changes. PANCREAS: Unremarkable. SPLEEN: Unremarkable. ADRENAL GLANDS: Unremarkable. KIDNEYS AND URETERS: The kidneys are normal in size, shape, and attenuation. No hydronephrosis, hydroureter, or calculi seen. No perinephric stranding. Small cortical cysts in the kidneys bilateral. BLADDER: Unremarkable. GASTROINTESTINAL TRACT: The small and large bowel are unremarkable. The appendix is unremarkable. ABDOMINAL WALL: No significant hernia is appreciated. LYMPH NODES: Normal. VASCULAR: Unremarkable. PELVIC VISCERA: Unremarkable. OSSEOUS STRUCTURES: Multilevel degenerative spondylosis of spine with endplate spurring, disc height narrowing and facet joint arthrosis. Grade 1 anterolisthesis of L4 on L5 due to facet joint disease. No spondylolysis. IMPRESSION: 1. There is no acute abnormality of the abdomen or the pelvis. 2. Airspace opacities at the anterior right middle lobe and the posterior right lower lobe, pneumonic infiltrates.
[2017-12-18] MEDS ORDERED: PREDNISONE10 M2 PO (21:18)
[2017-12-18] MEDS ORDERED: AUGMENTIN 875-1 EACH PO (21:18)
[2017-12-18 21:34] VITALS: BP 118/54
== END 2017-12-18 21:26 ==
LOC: ERH 17:20
PROVIDERS: Physician Assistant
DX: J18.9 Pneumonia, unspecified organism (principal); R10.30 Lower abdominal pain, unspecified; F17.210 Nicotine dependence, cigarettes, uncomplicated
CPT/HCPCS: 74177; 81001; 87040; 87086; 96374; 96376; J2930